=== PATIENT | female | born 1965 | race Caucasian/White ===

== ENCOUNTER 2016-07-15 08:11 | Day surgery (SDC) | payer MEDICARE, OTHER ==
[~2016-07-15] VITALS: Ht 157.5 cm; Wt 56.3 kg
[~2016-07-15 08:11] MED LIST: ARIP1TAB7 PO; COLY4000S PO; CYMB60CA PO; LURA1TAB2 PO; TRAZ300T2 PO; XANA1TAB2 PO
[2016-07-15] MEDS ORDERED: LORazepam 1 MG TAB SL SCH (10:00)
[2016-07-15] MEDS ORDERED: VANCOMYCIN 1000 MG/NS 250 ML IV SCH ×2 (10:00)
[2016-07-15] MEDS ORDERED: POVIDONE IODINE 5% (ANTISEPSIS KIT) 4 APPLICATIONS EACH NARE SCH (10:00)
[2016-07-15] MEDS ORDERED: MUPIROCIN 2% OINT 1 APPLIC/GM SYR NASAL SCH (10:00)
[2016-07-15] MEDS ORDERED: NS 1000 ML IV SCH (10:00)
[2016-07-15] MEDS ORDERED: CHLORHEXIDINE GLUCONATE 2 % 1 PACK (2 CLOTHS) TOP SCH (10:00)
[2016-07-15] MEDS ORDERED: Hold AM Insulin & AM Hypoglycemic medications in diabetic patients XX PRN (10:00)
[2016-07-15] MEDS ORDERED: NO Heparin, Lovenox, Coumadin at least 12 hours prior to procedure. XX PRN (10:00)
[2016-07-15 10:12] VITALS: BP 103/74; PULSE 72; RESP 18; TEMP 98.1; O2SAT 97
[2016-07-15] MEDS ORDERED: XANA2TAB2 PO (10:23)
[2016-07-15] MEDS ORDERED: ALBUAER3 INH (10:23)
[2016-07-15] MEDS ORDERED: BUPR150CR PO (10:23)
[2016-07-15] MEDS ORDERED: ABIL30TA2 PO (10:23)
[2016-07-15] MEDS ORDERED: VANCOMYCIN 500 MG VIAL ONE (10:46)
[2016-07-15] MEDS ORDERED: LIDOCAINE HCL 2% 50 ML VIAL ONE (10:46)
[2016-07-15] MEDS ORDERED: MIDAZOLAM HCL 2 MG/2 ML VIAL ONE (10:56)
[2016-07-15] MEDS ORDERED: SODIUM CHLORIDE 0.9% FLUSH 5 ML FLUSH IVF PRN (11:30)
[2016-07-15] MEDS ORDERED: ACETAMINOPHEN/CODEINE 300 MG/30 MG TAB PO PRN (11:30)
[2016-07-15] MEDS ORDERED: SODIUM CHLORIDE 0.9% FLUSH 5 ML FLUSH IVF SCH (21:00)
--- NOTE | 2016-07-16 17:18 | MP ---
cc: MODESTO MULLER M.D. DATE OF SURGERY 07/15/16 PROCEDURE Loop recorder removal. HISTORY Mrs. Arias is a 50-year-old female with history of syncope who has a previous recorder inserted, admitted for loop recorder removal. The risks, the nature and the benefit of the procedure are clearly stated to her. Risks include pneumothorax, infection and even . The patient understood and agreed to proceed. PROCEDURE IN DETAIL After written informed consent was obtained, the patient was brought to the EP lab where she was prepped and draped in the usual sterile fashion. Conscious sedation was initiated and maintained throughout the procedure by anesthesiologist. Once sedation was verified, the left parasternal area was anesthetized with 2% Xylocaine. Using an #11 blade scalpel, a 1 centimeter incision was made over the existing generator. This incision was then taken down deep fascial layer using Bovie cautery and blunt dissection. Once exposed, the loop was removed from the pocket. Then at that point I did proceed with wound closure. The deep fascial layer was approximated using 2-0 Vicryl suture in a continuous fashion. The subcutaneous layer was approximated using 2-0 Vicryl suture in continuous fashion. Dermabond adhesive was applied to the wound. There was no complication. The patient tolerated the procedure. Blood loss minimal. CONCLUSION Successful [employer] loop recorder removal, RECOMMENDATIONS The patient is going to be transferred to recovery room. Will be observed and discharged home later today. MD BRENDA Prieto/ /11:35 AM /5:15 PM
== END 2016-07-15 14:34 | disposition home or self-care (01) ==
LOC: HCAT 08:11 → HDIC 08:12 → HCAT 14:34
PROVIDERS: ATTEND Internal Medicine Interventional Cardiology
DX: Z45.09 Encounter for adjustment and management of other cardiac device (principal)
CPT/HCPCS: 33284; J2250; J3010; J3370

== ENCOUNTER 2016-07-18 11:31 | Emergency (ER) | payer MEDICARE, OTHER ==
[~2016-07-18] VITALS: Ht 157.5 cm; Wt 56.0 kg
[~2016-07-18 11:31] MED LIST changes: +ABIL30TA2 PO; +ALBUAER3 INH; -ARIP1TAB7 PO; +BUPR150CR PO; -COLY4000S PO; -XANA1TAB2 PO; +XANA2TAB2 PO
[2016-07-18 11:37] VITALS: BP 87/52; PULSE 91; RESP 18; TEMP 98; O2SAT 96
[2016-07-18 11:55] VITALS: BP 113/69; PULSE 80; RESP 16; TEMP 97.7; O2SAT 96
[2016-07-18] MEDS ORDERED: VANCOMYCIN INJ 850 MG in SODIUM CHLOR 0.9% 250 ML INJ 250 ML IV ONE (12:45)
[2016-07-18 13:10] LABS: AUTOMATED NEUTROPHIL # 2.6 TH/MM3 (1.8-7.7); BASOPHIL % 0.6 % (0.0-2.0); EOSINOPHIL # 0.3 TH/MM3 (0-0.4); HEMATOCRIT 38.9 % (35.0-46.0); HEMO FLAGS DIFF FINAL; LYMPH % 41.4 % (9.0-44.0); LYMPHOCYTE # 2.4 TH/MM3 (1.0-4.8); MEAN CELL VOLUME 88.7 FL (80.0-100.0); MEAN CORPUSCULAR HEMOGLOBIN 29.9 PG (27.0-34.0); MEAN CORPUSCULAR HGB CONC 33.8 % (32.0-36.0); MONO % 6.8 % (0.0-8.0); NEUT % 46.2 % (16.0-70.0); PLATELET COUNT 183 TH/MM3 (150-450); RED BLOOD COUNT 4.38 MIL/MM3 (4.00-5.30); RED CELL DISTRIBUTION WIDTH 11.6 % (11.6-17.2); WHITE BLOOD COUNT 5.8 TH/MM3 (4.0-11.0)
[2016-07-18 13:16] LABS: CHLORIDE 107 MEQ/L (98-107); SODIUM (NA) 142 MEQ/L (136-145)
[2016-07-18 13:18] LABS: POTASSIUM 4.2 MEQ/L (3.5-5.1)
[2016-07-18 13:20] LABS: ANION GAP 4 MEQ/L (5-15); BICARBONATE 31.2 MEQ/L (21.0-32.0); BLOOD UREA NITROGEN 11 MG/DL (7-18)
[2016-07-18 13:23] LABS: ALT (GPT) 13 U/L (10-53); AST (GOT) 11 U/L (15-37); GLOMERULAR FILTRATION RATE 53 ML/MIN (>89)
[2016-07-18 13:25] LABS: TOTAL BILIRUBIN ADULT 0.5 MG/DL (0.2-1.0)
[2016-07-18 13:26] LABS: ALKALINE PHOSPHATASE 42 U/L (45-117)
--- NOTE | 2016-07-18 14:10 | PD ---
HPI Chief Complaint: Skin Problem Time Seen by Provider: 12:16 Travel History International Travel<30 days: No Contact w/Intl Traveler<30days: No Traveled to known affect area: No History of Present Illness HPI Patient is a 50-year-old female who presents to emergency room for evaluation of possible infection to her chest wall. Patient reports that she had a loop recorder in her left chest placed by Dr Bravo 1 year and 10 months ago. Reports that on Friday, he removed this loop recorder. Patient reports that since removed, she has noticed increased bruising surrounding the incision site as well as redness as well as thick yellow drainage from the area. Patient concern for possible infection to the area. She did call her superintendent transportation's office, she was told to come to the emergency room for evaluation. Patient denies fevers, reports chills. Denies chest pain or shortness of breath at this time. Patient has not been on any antibiotics at this time. Patient also complaining of pain to area where she had a loop recorder. She reports that she had this loop recorder initially placed, patient was with some Lortab, reports that Dr. Bravo forgot to give her a prescription for Lortab after this loop recorder was removed. Patient with no other complaints at this time. PFSH Past Medical History Hx Anticoagulant Therapy: No Arthritis: Yes Asthma: Yes Bipolar Disorder: Yes Anxiety: Yes Depression: Yes Cancer: No Cardiovascular Problems: Yes (LOOP RECORDER FOR ARRYTHMIA) Chemotherapy: No Chest Pain: No Cerebrovascular Accident: No Diabetes: No Diminished Hearing: No Endocrine: No Gastrointestinal Disorders: No GERD: Yes Glaucoma: No Genitourinary: No Headaches: Yes (Migraines) Hepatitis: No Hiatal Hernia: No Herniated Disk: Yes ("BULGING DISCS FROM OLD WORK INJURY IN 1988") Hypertension: No Immune Disorder: No Implanted Vascular Access Dvce: Yes Musculoskeletal: Yes Neurologic: Yes Psychiatric: Yes (Depression) Reproductive: No Respiratory: Yes (COPD) Integumentary: No Immunizations Current: Yes Migraines: Yes Pneumonia: Yes Radiation Therapy: No Seizures: No Thyroid Disease: No Influenza Vaccination: No ?: Not Menopausal: Yes : 1 : 1 Ovarian Cysts: Yes Dilation and Curettage (D&C): Yes (X 3) Past Surgical History Abdominal Surgery: No Body Medical Devices: "WIRES STILL IN FROM SPINAL CORD STIMULATOR", MICROCHIP BEEF KILLER Cardiac Surgery: Yes (MICROCHIP MONITOR :REMOVED 07/15/16) Ear Surgery: No Endocrine Surgery: No Eye Surgery: No Genitourinary Surgery: No Gynecologic Surgery: Yes (OVARIAN CYST) Hysterectomy: No Neurologic Surgery: No Oral Surgery: No Thoracic Surgery: No Tonsillectomy: Yes Other Surgery: Yes (SINUS, back multiple and right knee) Social History Alcohol Use: No Tobacco Use: Yes (2-3 CIGS/DAY) Substance Use: No (DENIES) Allergies-Medications (Allergen,Severity, Reaction): Coded Allergies: Amoxicillin (Verified Allergy, Severe, HIVES, 07/18/16) Phenergan (Verified Allergy, Severe, HIVES/FACIAL SWELLING, 07/18/16) Toradol (Verified Allergy, Severe, HIVES/FACIAL SWELLING, 07/18/16) Benadryl (Verified Adverse Reaction, Severe, FACIAL SWELLING/HIVES, 07/18/16 ) Darvocet-N 100 (Verified Adverse Reaction, Severe, HIVES/FACIAL SWELLING, 07/18/16) Medrol (Verified Adverse Reaction, Severe, Swelling, 07/18/16) HIVES Morphine (Verified Adverse Reaction, Severe, HEADACHE, 07/18/16) Reported Meds & Prescriptions Reported Meds & Active Scripts Active Doxycycline Hyclate 100 Mg Cap 100 Mg PO BID 10 Days Reported Xanax (Alprazolam) 2 Mg Tab 2 Mg PO DAILY PRN Wellbutrin SR 12 HR (Bupropion HCl) 150 Mg Tab 150 Mg PO DAILY Abilify (Aripiprazole) 30 Mg Tab 30 Mg PO DAILY Cymbalta DR (Duloxetine HCl) 60 Mg Capdr 60 Mg PO DAILY Latuda (Lurasidone) 60 Mg Tab 60 Mg PO DAILY Trazodone (Trazodone HCl) 300 Mg Tab 300 Mg PO HS Review of Systems General / Constitutional: Positive: Chills, No: Fever Eyes: No: Visual changes HENT: No: Headaches Cardiovascular: No: Chest Pain or Discomfort Respiratory: No: Shortness of Breath Gastrointestinal: No: Abdominal Pain Genitourinary: No: Dysuria Musculoskeletal: No: Pain Skin: Positive Other (chest wall drainage), No Rash Neurologic: No: Weakness Psychiatric: No: Depression Endocrine: No: Polydipsia Hematologic/Lymphatic: No: Easy Bruising Physical Exam Narrative GENERAL: nad, nontoxic SKIN: Warm and dry. HEAD: Atraumatic. Normocephalic. EYES: No injection or drainage. ENT: No nasal bleeding or discharge. Mucous membranes pink and moist. NECK: Trachea midline. No JVD. CARDIOVASCULAR: Regular rate and rhythm. No murmur appreciated. patient with erythema surrounding left chest wall incision site, there is thick yellow pus draining from area RESPIRATORY: No accessory muscle use. Clear to auscultation. Breath sounds equal bilaterally. GASTROINTESTINAL: Abdomen soft, non-tender, nondistended. Hepatic and splenic margins not palpable. MUSCULOSKELETAL: No obvious deformities. No clubbing. No cyanosis. No edema. NEUROLOGICAL: Awake and alert. No obvious cranial nerve deficits. Motor grossly within normal limits. Normal speech. PSYCHIATRIC: Appropriate mood and affect; insight and judgment normal. Data Data Last Documented VS Vital Signs Date Time Temp Pulse Resp B/P Pulse Ox O2 Delivery O2 Flow Rate FiO2 07/18/16 14:11 75 16 90/57 96 Room Air 07/18/16 11:55 97.7 Orders Complete Blood Count With Diff (07/18/16 12:31) Comprehensive Metabolic Panel (07/18/16 12:31) Wound Culture And Gram Stain (07/18/16 12:31) Iv Access Insert/Monitor (07/18/16 12:31) Vancomycin Inj (Vancomycin Inj) (07/18/16 12:45) Ct Thorax/ Chest W Iv Contrast (07/18/16 ) Iohexol 350 Inj (Omnipaque 350 Inj) (07/18/16 14:25) Labs Laboratory Tests Test 07/18/16 13:05 White Blood Count 5.8 TH/MM3 Red Blood Count 4.38 MIL/MM3 Hemoglobin 13.1 GM/DL Hematocrit 38.9 % Mean Corpuscular Volume 88.7 FL Mean Corpuscular Hemoglobin 29.9 PG Mean Corpuscular Hemoglobin 33.8 % Concent Red Cell Distribution Width 11.6 % Platelet Count 183 TH/MM3 Mean Platelet Volume 7.0 FL Neutrophils (%) (Auto) 46.2 % Lymphocytes (%) (Auto) 41.4 % Monocytes (%) (Auto) 6.8 % Eosinophils (%) (Auto) 5.0 % Basophils (%) (Auto) 0.6 % Neutrophils # (Auto) 2.6 TH/MM3 Lymphocytes # (Auto) 2.4 TH/MM3 Monocytes # (Auto) 0.4 TH/MM3 Eosinophils # (Auto) 0.3 TH/MM3 Basophils # (Auto) 0.0 TH/MM3 CBC Comment DIFF FINAL Differential Comment Sodium Level 142 MEQ/L Potassium Level 4.2 MEQ/L Chloride Level 107 MEQ/L Carbon Dioxide Level 31.2 MEQ/L Anion Gap 4 MEQ/L Blood Urea Nitrogen 11 MG/DL Creatinine 1.10 MG/DL Estimat Glomerular Filtration 53 ML/MIN Rate Random Glucose 88 MG/DL Calcium Level 8.2 MG/DL Total Bilirubin 0.5 MG/DL Aspartate Amino Transf 11 U/L (AST/SGOT) Alanine Aminotransferase 13 U/L (ALT/SGPT) Alkaline Phosphatase 42 U/L Total Protein 6.3 GM/DL Albumin 3.2 GM/DL MDM Medical Decision Making Medical Screen Exam Complete: Yes Emergency Medical Condition: Yes Interpretation(s) Vital Signs Date Time Temp Pulse Resp B/P Pulse Ox O2 Delivery O2 Flow Rate FiO2 07/18/16 11:55 97.7 80 16 113/69 96 Room Air 07/18/16 11:37 98.0 91 18 87/52 96 CBC & BMP Diagram 07/18/16 13:05 Differential Diagnosis wound infection, chest wall abscess with cellulitis Narrative Course Patient is a 50 year old female who had a loop recorder removed on Friday by Dr. Bravo. Reports that she noticed increased redness and erythema surrounding area. Reports that she has noticed purulent drainage from incision site today. Patient with no fevers, c/o of chills. Patient reports that tetanus is up to date. VSS. Patient does have purulent yellow discharge from left-sided chest wall. Cultures will be sent for this discharge. Will give dose of vancomycin. CT of chest ordered to evaluate for possible abscess. CBC & BMP Diagram 07/18/16 13:[address] 07/18/16 0000 Signed Impressions: Service Date/Time: July 14:13 - CONCLUSION: 1. Focal skin thickening and mild inflammatory change in the subcutaneous fat along the medial left chest wall at site of removal of the loop recorder. 2. Benign cystic lesion in the posterior spleen. Raj Brady MD Patient with infection to incision site, will start her on antibiotics and have her follow-up with a primary care doctor. She will return to the emergency reviewed 48 hours for reevaluation. She will return to ER as symptoms progress or worsen. Signs and symptoms of when to return to emergency room reviewed in detail with patient Diagnosis Primary Impression: Cellulitis Qualified Code: L03.313 - Cellulitis of chest wall Additional Impressions: chest wall infection Incisional infection Qualified Code: T81.4XXA - Incisional infection, initial encounter Patient Instructions: General Instructions Additional Instructions: Please provide patient with a copy of her lab work and studies at discharge Please follow-up with your primary care doctor in 48 hours Return to emergency if your symptoms progress or worsen or if you develop fevers or chills Please take all antibiotics as prescribed Please follow up with your superintendent transportation as soon as possible Scripts Hydrocodone-Acetaminophen (Lortab)5-325 Mg Tab1 Tab PO Q6H PRN (PAIN) #6 TAB Ref 0 Prov:Lisa Collado DO 07/18/16 Doxycycline Hyclate 100 Mg [id number] Mg PO BID 10 Days Ref 0 Prov:Lisa Collado DO 07/18/16 Disposition: 01 DISCHARGE HOME Condition: Stable Lisa Collado DO Jul 18, 2016 14:10
[2016-07-18 14:11] VITALS: BP 90/57; PULSE 75; RESP 16; O2SAT 96
[2016-07-18] MEDS ORDERED: IOHEXOL 350 MG/ML 10 ML VIAL (for RAD DIAG) IV ONE (14:25)
--- NOTE | 2016-07-18 14:35 | RADHPO ---
EXAM DATE/TIME: 07/18/2016 14:13 [facility] COMPARISON: CT PULMONARY ANGIOGRAM, December 12, 2013, 11:34. CHEST SINGLE AP, August 18, 2015, 7:31. INDICATIONS : Loop recorder removed from left chest wall on Friday and has redness, itching and pain in that reg ion. Evaluate for abscess. IV CONTRAST: 50 cc Omnipaque 350 (iohexol) IV RADIATION DOSE: 6.77 CTDIvol (mGy) MEDICAL HISTORY : Chronic obstructive pulmonary disease. Gastroesophageal reflux disease. Asthma. SURGICAL HISTORY : Spinal cord stimulator. ENCOUNTER: Initial ACUITY: 4 - 6 days PAIN SCALE: 8/10 LOCATION: Left chest TECHNIQUE: Volumetric scanning of the chest was performed. Using automated exposure control and adjustment of t he mA and/or kV according to patient size, radiation dose was kept as low as reasonably achievable to obtain optimal diagnostic quality images. FINDINGS: LUNGS: There is no consolidation or pneumothorax. No concerning pulmonary nodule is visualized. PLEURA: There is no pleural thickening or pleural effusion. MEDIASTINUM: The heart and great vessels demonstrate no acute abnormality. There is no mediastinal or hilar lymph adenopathy. A minimal amount of pericardial fluid is present.AXILLAE: Within normal limits. No lymphadenopathy. SKELETAL: Within normal limits for patient age. MISCELLANEOUS: The visualized upper abdominal organs demonstrate no acute abnormality. There is focal skin thickenin g and mild inflammatory change in the subcutaneous fat along the medial left chest wall at the site o f removal of the loop recorder. There is no drainable fluid collection. A cystic lesion is present in the posterior spleen. This appears stable compared to the remote 2003 study. CONCLUSION: 1. Focal skin thickening and mild inflammatory change in the subcutaneous fat along the medial left c hest wall at site of removal of the loop recorder. 2. Benign cystic lesion in the posterior spleen. Raj Brady MD on July 18, 2016 at 14:29 Board Certified Radiologist. This report was verified electronically.
[2016-07-18] MEDS ORDERED: DOXY100C PO (15:08)
[2016-07-18] MEDS ORDERED: HYDR-3533 PO (15:14)
[2016-07-18 15:17] VITALS: BP 110/62; PULSE 75; RESP 18; O2SAT 96
== END 2016-07-18 15:33 | disposition home or self-care (01) ==
LOC: PHEFT 11:31
DX: L03.313 Cellulitis of chest wall (principal); T81.4XXA Infection following a procedure, initial encounter; M19.90 Unspecified osteoarthritis, unspecified site; J45.909 Unspecified asthma, uncomplicated; F41.8 Other specified anxiety disorders; Z72.0 Tobacco use
CPT/HCPCS: 71260; 80053; 85025; 96365; 99284; J3370; J7050; Q9967

== ENCOUNTER 2016-07-27 09:28 | Emergency (ER) | payer MEDICARE, OTHER ==
[~2016-07-27] VITALS: Ht 157.5 cm; Wt 57.0 kg
[~2016-07-27 09:28] MED LIST changes: -ALBUAER3 INH; +DOXY100C PO; +HYDR-3533 PO
[2016-07-27 09:35] VITALS: BP 105/68; PULSE 101; RESP 16; TEMP 97.5; O2SAT 94
[2016-07-27] MEDS ORDERED: IBUPROFEN 600 MG TAB PO ONE (09:45)
--- NOTE | 2016-07-27 09:50 | PD ---
HPI Chief Complaint: Injury Time Seen by Provider: 09:41 Travel History International Travel<30 days: No Contact w/Intl Traveler<30days: No Traveled to known affect area: No History of Present Illness HPI Patient is a 50-year-old female who presents to emergency room with complaints of left toe digit #5 pain. Patient reports that she was getting out of that today, reports that she related bed and injured her left toe digit #5. Reports that when she stepped onto her floor, her foot "rolled over" and reports that she heard a "crack" sound and had pain to her left digit #5. Patient here for xray. Reports no fall or any trauma to the head or neck. Reports that "I just told him my left little toe and hurts now". Patient did try to emergency room today, she did not take anything for pain prior to coming to emergency room. Patient does not have allergy to Motrin, she has tolerated this past. PFSH Past Medical History Hx Anticoagulant Therapy: No Arthritis: Yes Asthma: Yes Bipolar Disorder: Yes Anxiety: Yes Depression: Yes Cancer: No Cardiovascular Problems: Yes (LOOP RECORDER FOR ARRYTHMIA) Chemotherapy: No Chest Pain: No Cerebrovascular Accident: No Diabetes: No Diminished Hearing: No Endocrine: No Gastrointestinal Disorders: No GERD: Yes Glaucoma: No Genitourinary: No Headaches: Yes (Migraines) Hepatitis: No Hiatal Hernia: No Herniated Disk: Yes ("BULGING DISCS FROM OLD WORK INJURY IN 1988") Hypertension: No Immune Disorder: No Implanted Vascular Access Dvce: Yes Musculoskeletal: Yes Neurologic: Yes Psychiatric: Yes (Depression) Reproductive: No Respiratory: Yes (COPD) Integumentary: No Immunizations Current: Yes Migraines: Yes Pneumonia: Yes Radiation Therapy: No Seizures: No Thyroid Disease: No ?: Not Menopausal: Yes : 1 : 1 Ovarian Cysts: Yes Dilation and Curettage (D&C): Yes (X 3) Past Surgical History Abdominal Surgery: No Body Medical Devices: "WIRES STILL IN FROM SPINAL CORD STIMULATOR", MICROCHIP ALLOY WEIGHER Cardiac Surgery: Yes (MICROCHIP MONITOR :REMOVED 07/15/16) Ear Surgery: No Endocrine Surgery: No Eye Surgery: No Genitourinary Surgery: No Gynecologic Surgery: Yes (OVARIAN CYST) Hysterectomy: No Neurologic Surgery: No Oral Surgery: No Thoracic Surgery: No Tonsillectomy: Yes Other Surgery: Yes (SINUS, back multiple and right knee) Social History Alcohol Use: No Tobacco Use: Yes (2-3 CIGS/DAY) Substance Use: No (DENIES) Allergies-Medications (Allergen,Severity, Reaction): Coded Allergies: Amoxicillin (Verified Allergy, Severe, HIVES, 07/27/16) Phenergan (Verified Allergy, Severe, HIVES/FACIAL SWELLING, 07/27/16) Toradol (Verified Allergy, Severe, HIVES/FACIAL SWELLING, 07/27/16) Benadryl (Verified Adverse Reaction, Severe, FACIAL SWELLING/HIVES, ) Darvocet-N 100 (Verified Adverse Reaction, Severe, HIVES/FACIAL SWELLING, 07/27/16) Medrol (Verified Adverse Reaction, Severe, Swelling, 07/27/16) HIVES Morphine (Verified Adverse Reaction, Severe, HEADACHE, 07/27/16) Reported Meds & Prescriptions Reported Meds & Active Scripts Active Ibuprofen 600 Mg Tab 600 Mg PO Q6H PRN Reported Xanax (Alprazolam) 2 Mg Tab 1 Mg PO BID PRN Wellbutrin SR 12 HR (Bupropion HCl) 150 Mg Tab 150 Mg PO DAILY Abilify (Aripiprazole) 30 Mg Tab 30 Mg PO DAILY Cymbalta DR (Duloxetine HCl) 60 Mg Capdr 60 Mg PO DAILY Latuda (Lurasidone) 60 Mg Tab 60 Mg PO DAILY Trazodone (Trazodone HCl) 300 Mg Tab 300 Mg PO HS Review of Systems General / Constitutional: No: Fever Eyes: No: Visual changes HENT: No: Headaches Cardiovascular: No: Chest Pain or Discomfort Respiratory: No: Shortness of Breath Gastrointestinal: No: Abdominal Pain Genitourinary: No: Dysuria Musculoskeletal: Positive: Limited ROM (left digit #5), No: Pain Skin: No Rash Neurologic: No: Weakness Psychiatric: No: Depression Endocrine: No: Polydipsia Hematologic/Lymphatic: No: Easy Bruising Physical Exam Narrative GENERAL: Well-nourished, well-developed patient. SKIN: Warm and dry. HEAD: Normocephalic. EYES: No scleral icterus. No injection or drainage. NECK: Supple, trachea midline. No JVD or lymphadenopathy. CARDIOVASCULAR: Regular rate and rhythm without murmurs, gallops, or rubs. RESPIRATORY: Breath sounds equal bilaterally. No accessory muscle use. GASTROINTESTINAL: Abdomen soft, non-tender, nondistended. MUSCULOSKELETAL: No cyanosis, or edema. Patient with no obvious fractures, no obvious open fracture. Left foot: Patient with pain with range of motion to left digit #5. Patient with normal range of motion to digits #1-4. Pulses intact, neurovascularly intact. Patient with no pain with range of motion to left ankle. Right foot: Normal exam BACK: Nontender without obvious deformity. No CVA tenderness. Data Data Last Documented VS Vital Signs Date Time Temp Pulse Resp B/P Pulse Ox O2 Delivery O2 Flow Rate FiO2 07/27/16 09:35 97.5 101 16 105/68 94 Orders Foot, Complete ([id number]) (07/27/16 ) Ibuprofen (Motrin) (07/27/16 09:45) MDM Medical Decision Making Medical Screen Exam Complete: Yes Emergency Medical Condition: Yes Interpretation(s) Vital Signs Date Time Temp Pulse Resp B/P Pulse Ox O2 Delivery O2 Flow Rate FiO2 07/27/16 09:35 97.5 101 16 105/68 94 Differential Diagnosis Toe fracture, toe sprain Vital Signs Date Time Temp Pulse Resp B/P Pulse Ox O2 Delivery O2 Flow Rate FiO2 07/27/16 09:35 97.5 101 16 105/68 94 Narrative Course Patient is a 50-year-old female who presents to emergency room with complaints of pain to her left foot digit #5, patient reports that she got out of bed today , she inverted her foot by accident and reports that she hurt her left digit # 5. Patient reports that she did hear a crack to her little toe. Patient presents to emergency room for evaluation of possible fracture. Patient does not have allergy to Motrin at this was confirmed with patient. X- ray ordered to eval for possible fracture Last Impressions Foot X-Ray 07/27/16 0000 Signed Impressions: Service Date/Time: Wednesday, July 27, 2016 10:00 - CONCLUSION: Intact left foot. James Yun MD Patient with no signs of fracture. X-ray of foot radiology impression was given to patient. Encouraged patient for rest ice and elevation, will have patient return to the emergency room as needed. Diagnosis Primary Impression: Sprain of toe, fifth, left Qualified Code: S93.505A - Sprain of toe, fifth, left, initial encounter Patient Instructions: General Instructions Departure Forms: Tests/Procedures, Work Release Enter return to work date: Jul 29, 2016 Additional Instructions: Please follow-up with your primary care doctor Place ice to your toe Take Tylenol or Motrin for pain Return to the emergency room as needed Follow-up with orthopedic surgery or podiatry if symptoms progress or worse Med/Other Pt SpecificInfo: Prescription(s) given Scripts Ibuprofen 600 Mg [id number] Mg PO Q6H PRN (Pain/Inflammation) #40 TAB Ref 0 Prov:Lisa Collado DO 07/27/16 Disposition: 01 DISCHARGE HOME Condition: Stable Lisa Collado DO Jul 27, 2016 09:50 Lisa Collado DO Jul 27, 2016 09:50
--- NOTE | 2016-07-27 10:25 | RADHPO ---
EXAM DATE/TIME: 07/27/2016 10:00 [facility] COMPARISON: No previous studies available for comparison. INDICATIONS : twisted left foot this am, worse pain base of 5th,4th toes MEDICAL HISTORY : None. SURGICAL HISTORY : None. ENCOUNTER: Initial ACUITY: 1 day PAIN SCORE: 7/10 LOCATION: Left foot FINDINGS: Three view examination of the left foot demonstrates no soft tissue swelling, dislocation, or fractur e. The tarsal bones appear intact. The interphalangeal and metatarsophalangeal joints are intact. The calcaneus is intact. Bony mineralization is normal. CONCLUSION: Intact left foot. James Yun MD on July 27, 2016 at 10:23 Board Certified Radiologist. This report was verified electronically.
[2016-07-27] MEDS ORDERED: IBUP-232 PO (10:35)
== END 2016-07-27 11:17 | disposition home or self-care (01) ==
LOC: PHED 09:28
DX: S93.505A Unspecified sprain of left lesser toe(s), initial encounter (principal); Z72.0 Tobacco use; J44.9 Chronic obstructive pulmonary disease, unspecified; X50.1XXA Overexertion from prolonged static or awkward postures, initial encounter; Y93.9 Activity, unspecified; Y92.9 Unspecified place or not applicable; Y99.9 Unspecified external cause status
CPT/HCPCS: 73630; 99283

== ENCOUNTER 2016-10-19 09:47 | Emergency (ER) | payer MEDICARE, OTHER ==
[~2016-10-19] VITALS: Ht 157.5 cm; Wt 56.0 kg
[~2016-10-19 09:47] MED LIST changes: -DOXY100C PO; -HYDR-3533 PO; +IBUP-232 PO
[2016-10-19 10:05] VITALS: BP 105/74; PULSE 88; RESP 16; TEMP 97.5; O2SAT 56; O2SAT 98
--- NOTE | 2016-10-19 11:10 | PD ---
HPI Chief Complaint: Musculoskeletal Complaint Time Seen by Provider: 11:09 Travel History International Travel<30 days: No Contact w/Intl Traveler<30days: No Traveled to known affect area: No History of Present Illness HPI 51-year-old female presents the emergency department with one week history of worsening right knee pain. Patient states she has had surgery on his knee years ago in [place] with cartilage removal. She states she bumped her knee on the steering column a car approximately one week ago and is progressively worse with pain generally in the anterior aspect of the knee. She states is worse with ambulation and worse at night. She has been taking ibuprofen and Aleve without improvement. She describes the pain as 8/10. Worse with ambulation. Patient has no local orthopedist or primary care physician. She is allergic to amoxicillin, Benadryl, Darvocet, Medrol, morphine , Phenergan, and Toradol. PFSH Past Medical History Hx Anticoagulant Therapy: No Arthritis: Yes Asthma: Yes Bipolar Disorder: Yes Anxiety: Yes Depression: Yes Cancer: No Cardiovascular Problems: Yes (LOOP RECORDER FOR ARRYTHMIA) Chemotherapy: No Chest Pain: No Cerebrovascular Accident: No Diabetes: No Diminished Hearing: No Endocrine: No Gastrointestinal Disorders: No GERD: Yes Glaucoma: No Genitourinary: No Headaches: Yes (Migraines) Hepatitis: No Hiatal Hernia: No Herniated Disk: Yes ("BULGING DISCS FROM OLD WORK INJURY IN 1988") Hypertension: No Immune Disorder: No Implanted Vascular Access Dvce: Yes Musculoskeletal: Yes Neurologic: Yes Psychiatric: Yes (Depression) Reproductive: No Respiratory: Yes (copd) Integumentary: No Immunizations Current: Yes Migraines: Yes Pneumonia: Yes Radiation Therapy: No Seizures: No Thyroid Disease: No ?: Not Menopausal: Yes : 1 : 1 Ovarian Cysts: Yes Dilation and Curettage (D&C): Yes (X 3) Past Surgical History Abdominal Surgery: No Body Medical Devices: "WIRES STILL IN FROM SPINAL CORD STIMULATOR", MI[employer]IP [employer]ITLES Cardiac Surgery: Yes (MICROCHIP MONITOR :REMOVED 07/15/16) Ear Surgery: No Endocrine Surgery: No Eye Surgery: No Genitourinary Surgery: No Gynecologic Surgery: Yes (OVARIAN CYST) Hysterectomy: No Neurologic Surgery: No Oral Surgery: No Thoracic Surgery: No Tonsillectomy: Yes Other Surgery: Yes (SINUS, back multiple and right knee) Social History Alcohol Use: No Tobacco Use: Yes (2 CIGS/DAY) Substance Use: No (DENIES) Allergies-Medications (Allergen,Severity, Reaction): Coded Allergies: Amoxicillin (Verified Allergy, Severe, HIVES, 10/19/16) Phenergan (Verified Allergy, Severe, HIVES/FACIAL SWELLING, 10/19/16) Toradol (Verified Allergy, Severe, HIVES/FACIAL SWELLING, 10/19/16) Benadryl (Verified Adverse Reaction, Severe, FACIAL SWELLING/HIVES, ) Darvocet-N 100 (Verified Adverse Reaction, Severe, HIVES/FACIAL SWELLING, 10/19/16) Medrol (Verified Adverse Reaction, Severe, Swelling, 10/19/16) HIVES Morphine (Verified Adverse Reaction, Severe, HEADACHE, 10/19/16) Reported Meds & Prescriptions Reported Meds & Active Scripts Active Lortab (Hydrocodone-Acetaminophen) 5-325 Mg Tab 1-2 Tab PO Q6H PRN Prednisone 20 Mg Tab 20 Mg PO BID Ibuprofen 600 Mg Tab 600 Mg PO Q6H PRN Reported Xanax (Alprazolam) 2 Mg Tab 1 Mg PO BID PRN Wellbutrin SR 12 HR (Bupropion HCl) 150 Mg Tab 150 Mg PO DAILY Abilify (Aripiprazole) 30 Mg Tab 30 Mg PO DAILY Cymbalta DR (Duloxetine HCl) 60 Mg Capdr 60 Mg PO DAILY Latuda (Lurasidone) 60 Mg Tab 60 Mg PO DAILY Trazodone (Trazodone HCl) 300 Mg Tab 300 Mg PO HS Review of Systems Except as stated in HPI: all other systems reviewed are Neg General / Constitutional: No: Fever Eyes: No: Visual changes HENT: No: Headaches Cardiovascular: No: Chest Pain or Discomfort Respiratory: No: Shortness of Breath Gastrointestinal: No: Abdominal Pain Genitourinary: No: Dysuria Musculoskeletal: Positive: Arthralgias, Limited ROM, Pain Skin: No Rash Neurologic: No: Weakness Psychiatric: No: Depression Endocrine: No: Polydipsia Hematologic/Lymphatic: No: Easy Bruising Physical Exam Narrative GENERAL: Patient appears in no acute distress. SKIN: Warm and dry. Normal color. Normal turgor. No signs of trauma. Patient has a large well-healed scar to the lateral aspect of the right knee. HEAD: Atraumatic. Normocephalic. EYES: Pupils equal and round. No scleral icterus. No injection or drainage. ENT: No nasal bleeding or discharge. Mucous membranes pink and moist. Pharynx is clear. Airway is patent. NECK: Trachea midline. Supple and nontender. CARDIOVASCULAR: Regular rate and rhythm. RESPIRATORY: No accessory muscle use. Clear to auscultation. Breath sounds equal bilaterally. MUSCULOSKELETAL: Extremities without clubbing, cyanosis, or edema. No obvious deformities. Patient has mild effusion along the patella bilaterally. Range of motion shows no significant laxity, however patient does have significant discomfort with flexion. Exam is limited secondary to patient's pain. NEUROLOGICAL: Awake and alert. No obvious cranial nerve deficits. Motor grossly within normal limits. Five out of 5 muscle strength in the arms and legs. Normal speech. PSYCHIATRIC: Appropriate mood and affect; insight and judgment normal. Data Data Last Documented VS Vital Signs Date Time Temp Pulse Resp B/P Pulse Ox O2 Delivery O2 Flow Rate FiO2 10/19/16 10:05 97.5 88 16 105/74 98 Orders Knee, Complete (4vws) (10/19/16 11:25) Ice/Cold Pack (10/19/16 11:25) Prednisone (Deltasone) (10/19/16 11:30) Tramadol (Ultram) (10/19/16 11:30) Splint Or Brace Apply/Monitor (10/19/16 12:17) Crutches (10/19/16 12:17) MDM Medical Decision Making Medical Screen Exam Complete: Yes Emergency Medical Condition: Yes Differential Diagnosis Arthritis. Right knee pain. Right knee contusion. Narrative Course Patient is medically stable at time of exam. X-rays of the right are ordered. Patient is given 60 mg prednisone by mouth as well as 50 mg tramadol by mouth. X-rays show arthritic changes without acute findings. Patient is placed in a knee immobilizer and crutches. She'll be discharged home on prednisone 20 mg twice a day 5 days. Patient is also given Lortab 5/325 one every 6 hours when necessary pain. #20. Patient is referred to the orthopedic on-call who is Dr. Couch. Patient should follow local primary care physician as well. Diagnosis Primary Impression: Arthralgia of right knee Referrals: Jose Almonte MD call for appointment Patient Instructions: Crutch Instructions (ED), General Instructions, Knee Immobilizer (ED) Additional Instructions: Patient is given 60 mg prednisone by mouth as well as 50 mg tramadol by mouth. X-rays show arthritic changes without acute findings. Patient is placed in a knee immobilizer and crutches. She'll be discharged home on prednisone 20 mg twice a day 5 days. Patient is also given tramadol 50 mg one every 6 hours when necessary pain. Patient is referred to the orthopedic on-call who is Dr. Couch. Patient should follow local primary care physician as well. Med/Other Pt SpecificInfo: Prescription(s) given Scripts Hydrocodone-Acetaminophen (Lortab)5-325 Mg Tab1-2 Tab PO Q6H PRN (PAIN) #20 TAB Prov:Daren Barrios MD 10/19/16 Prednisone 20 Mg Tab20 Mg PO BID #10 TAB Prov:Daren Barrios MD 10/19/16 Disposition: 01 DISCHARGE HOME Condition: Stable Jonathan Sexton October 19, 2016 11:10
[2016-10-19] MEDS ORDERED: predniSONE 20 MG TAB PO ONE (11:30)
[2016-10-19] MEDS ORDERED: traMADol HCL 50 MG TAB PO ONE (11:30)
--- NOTE | 2016-10-19 12:12 | RADHPO ---
EXAM DATE/TIME: 10/19/2016 11:46 [facility] COMPARISON: No previous studies available for comparison. INDICATIONS : Right knee pain, hit knee on hard surface MEDICAL HISTORY : None. SURGICAL HISTORY : knee surgery ENCOUNTER: Initial ACUITY: 1 week PAIN SCORE: 8/10 LOCATION: Right knee FINDINGS: Four view examination of the right knee demonstrates no evidence of fracture or dislocation. Mild deg enerative changes. Chondrocalcinosis. Soft tissue swelling. CONCLUSION: Soft tissue swelling without fracture. Mild degenerative changes and chondrocalcinosis. Dennys Nixon MD on October 19, 2016 at 12:09 Board Certified Radiologist. This report was verified electronically.
[2016-10-19] MEDS ORDERED: HYDR-3533 PO (12:19)
[2016-10-19] MEDS ORDERED: PRED20 PO (12:19)
== END 2016-10-19 12:40 | disposition home or self-care (01) ==
LOC: PHEFT 09:47
DX: M25.561 Pain in right knee (principal); J44.9 Chronic obstructive pulmonary disease, unspecified; M19.90 Unspecified osteoarthritis, unspecified site; F41.8 Other specified anxiety disorders; Z72.0 Tobacco use
CPT/HCPCS: 73564; 99283; E0113; J7512; L1830

== ENCOUNTER 2016-12-13 09:29 | Inpatient (IN) | payer MEDICARE, OTHER ==
[~2016-12-13] VITALS: Ht 157.5 cm; Wt 51.2 kg
[2016-12-13] VITALS (7 sets, daily range): BP systolic 98–115; BP diastolic 60–75; PULSE 67–83; RESP 16–18; TEMP 97.8–98; O2SAT 97–99
[~2016-12-13 09:29] MED LIST changes: +HYDR-3533 PO; +PRED20 PO
[2016-12-13] MEDS: SODIUM CHLORIDE 0.9% FLUSH 10 ML FLUSH IVF PRN ×2 (10:04→10:14)
[2016-12-13] MEDS ORDERED: LORazepam 2 MG/ML VIAL IV ONE (10:15)
--- NOTE | 2016-12-13 10:17 | PD ---
HPI Chief Complaint: Chest Pain Time Seen by Provider: 09:54 Travel History International Travel<30 days: No Contact w/Intl Traveler<30days: No Traveled to known affect area: No History of Present Illness HPI This is a 51-year-old female with a history of depression, substance abuse, who presents here with complaints of chest pain. When I went in to examine and talk with the patient, she became very tearful and stated that she was depressed. She states that she drank alcohol yesterday and smoked crack cocaine as well. She reports the chest pain as left sided with arm pain. She states that she is extremely depressed and needs to speak with a psychiatrist. When asked if she's been evaluated and seen before, the patient reports that she has. She denies any suicidal or homicidal ideation. She states been off of her medications for 4 days. When asked about her chest pain and depression, she states she is mainly here for her depression. She reports she's been having problems with her boyfriend. There are no other complaints at the time of my examination. PFSH Past Medical History Hx Anticoagulant Therapy: No Arthritis: Yes Asthma: Yes Bipolar Disorder: Yes Anxiety: Yes Depression: Yes Cancer: No Cardiovascular Problems: Yes Chemotherapy: No Chest Pain: No Cerebrovascular Accident: No Diabetes: No Diminished Hearing: No Endocrine: No Gastrointestinal Disorders: No GERD: Yes Glaucoma: No Genitourinary: No Headaches: Yes (Migraines) Hepatitis: No Hiatal Hernia: No Herniated Disk: Yes ("BULGING DISCS FROM OLD WORK INJURY IN 1988") Hypertension: No Immune Disorder: No Implanted Vascular Access Dvce: Yes Musculoskeletal: Yes Neurologic: Yes Psychiatric: Yes (Depression) Reproductive: No Respiratory: Yes (copd) Integumentary: No Immunizations Current: Yes Migraines: Yes Pneumonia: Yes Radiation Therapy: No Seizures: No Thyroid Disease: No Tetanus Vaccination: < 5 Years Influenza Vaccination: No ?: Not Menopausal: Yes : 1 : 1 Ovarian Cysts: Yes Dilation and Curettage (D&C): Yes (X 3) Past Surgical History Abdominal Surgery: No Body Medical Devices: "WIRES STILL IN FROM SPINAL CORD STIMULATOR", MI[employer]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 Cardiac Surgery: Yes (MICROCHIP MONITOR :REMOVED 07/15/16) Ear Surgery: No Endocrine Surgery: No Eye Surgery: No Genitourinary Surgery: No Gynecologic Surgery: Yes (OVARIAN CYST) Hysterectomy: No Neurologic Surgery: No Oral Surgery: No Thoracic Surgery: No Tonsillectomy: Yes Other Surgery: Yes (SINUS, back multiple and right knee) Social History Alcohol Use: Yes (RARE) Tobacco Use: Yes (2 CIGS/DAY) Substance Use: Yes (CRACK) Allergies-Medications (Allergen,Severity, Reaction): Coded Allergies: Amoxicillin (Verified Allergy, Severe, HIVES, 12/13/16) Phenergan (Verified Allergy, Severe, HIVES/FACIAL SWELLING, 12/13/16) Toradol (Verified Allergy, Severe, HIVES/FACIAL SWELLING, 12/13/16) Benadryl (Verified Adverse Reaction, Severe, FACIAL SWELLING/HIVES, 12/13/16 ) Darvocet-N 100 (Verified Adverse Reaction, Severe, HIVES/FACIAL SWELLING, 12/13/16) Medrol (Verified Adverse Reaction, Severe, Swelling, 12/13/16) HIVES Morphine (Verified Adverse Reaction, Severe, HEADACHE, 12/13/16) Reported Meds & Prescriptions Reported Meds & Active Scripts Active Reported Xanax (Alprazolam) 2 Mg Tab 1 Mg PO BID PRN Wellbutrin SR 12 HR (Bupropion HCl) 150 Mg Tab 150 Mg PO DAILY Abilify (Aripiprazole) 30 Mg Tab 30 Mg PO DAILY Cymbalta DR (Duloxetine HCl) 60 Mg Capdr 60 Mg PO DAILY Latuda (Lurasidone) 60 Mg Tab 60 Mg PO DAILY Trazodone (Trazodone HCl) 300 Mg Tab 300 Mg PO HS Review of Systems Except as stated in HPI: all other systems reviewed are Neg General / Constitutional: No: Fever, Chills Eyes: No: Blurred Vision, Photophobia HENT: No: Headaches, Neck Pain Cardiovascular: Positive: Chest Pain or Discomfort (tightness and left arm pain ), No: Palpitations, Irregular Rhythm Respiratory: No: Cough, Shortness of Breath Gastrointestinal: No: Nausea, Vomiting, Abdominal Pain Musculoskeletal: Positive: Pain (left arm pain earlier, none now), No: Myalgias, Weakness Neurologic: No: Weakness, Dizziness Psychiatric: Positive: Depression, Disorder of Thought, Substance Abuse Physical Exam Narrative GENERAL: Well developed well-nourished female who is very tearful and emotional when I entered the room. SKIN: Focused skin assessment warm/dry. HEAD: Atraumatic. Normocephalic. EYES: No scleral icterus. No injection or drainage. ENT: No nasal bleeding or discharge. Mucous membranes pink and moist. NECK: Trachea midline. No JVD. Supple. CARDIOVASCULAR: Regular rate and rhythm. No murmur appreciated. RESPIRATORY: No accessory muscle use. Clear to auscultation. Breath sounds equal bilaterally. GASTROINTESTINAL: Abdomen soft, non-tender, nondistended. Hepatic and splenic margins not palpable. MUSCULOSKELETAL: No obvious deformities. No clubbing. No cyanosis. No edema. NEUROLOGICAL: Awake and alert. No obvious cranial nerve deficits. Motor grossly within normal limits. Normal speech. PSYCHIATRIC: Emotionally labile with episodes of crying. Data Data Last Documented VS Vital Signs Date Time Temp Pulse Resp B/P Pulse Ox O2 Delivery O2 Flow Rate FiO2 12/13/16 13:02 97.9 72 16 110/73 99 Room Air Orders Electrocardiogram (12/13/16 ) Electrocardiogram (12/13/16 09:54) Basic Metabolic Panel (Bmp) (12/13/16 09:54) Ckmb (Isoenzyme) Profile (12/13/16 09:54) Complete Blood Count With Diff (12/13/16 09:54) Troponin I (12/13/16 09:54) Chest, Single Ap (12/13/16 09:54) Ecg Monitoring (12/13/16 09:54) Bilateral Bp Monitoring (12/13/16 09:54) Iv Access Insert/Monitor (12/13/16 09:54) Oximetry (12/13/16 09:54) Oxygen Administration (12/13/16 09:54) Sodium Chloride 0.9% Flush (Ns Flush) (12/13/16 10:00) Psych Screen (12/13/16 10:03) Lorazepam Inj (Ativan Inj) (12/13/16 10:15) Drug Screen, Random Urine (12/13/16 10:03) CKMB (12/13/16 10:00) CKMB% (12/13/16 10:00) Labs Laboratory Tests Test 12/13/16 10:00 White Blood Count 9.9 TH/MM3 Red Blood Count 4.19 MIL/MM3 Hemoglobin 13.1 GM/DL Hematocrit 37.8 % Mean Corpuscular Volume 90.0 FL Mean Corpuscular Hemoglobin 31.1 PG Mean Corpuscular Hemoglobin 34.6 % Concent Red Cell Distribution Width 12.3 % Platelet Count 245 TH/MM3 Mean Platelet Volume 7.8 FL Neutrophils (%) (Auto) 72.1 % Lymphocytes (%) (Auto) 20.8 % Monocytes (%) (Auto) 6.0 % Eosinophils (%) (Auto) 0.5 % Basophils (%) (Auto) 0.6 % Neutrophils # (Auto) 7.1 TH/MM3 Lymphocytes # (Auto) 2.1 TH/MM3 Monocytes # (Auto) 0.6 TH/MM3 Eosinophils # (Auto) 0.1 TH/MM3 Basophils # (Auto) 0.1 TH/MM3 CBC Comment DIFF FINAL Differential Comment Sodium Level 141 MEQ/L Potassium Level 3.9 MEQ/L Chloride Level 107 MEQ/L Carbon Dioxide Level 26.7 MEQ/L Anion Gap 7 MEQ/L Blood Urea Nitrogen 17 MG/DL Creatinine 0.97 MG/DL Estimat Glomerular Filtration 61 ML/MIN Rate Random Glucose 89 MG/DL Calcium Level 9.0 MG/DL Total Creatine Kinase 202 U/L Creatine Kinase MB 2.2 NG/ML Creatine Kinase MB % 1.1 % Troponin I LESS THAN 0.02 NG/ML MDM Medical Decision Making Medical Screen Exam Complete: Yes Emergency Medical Condition: Yes Differential Diagnosis Depression versus substance induced chest pain versus ACS Narrative Course 51-year-old female who presents today with complaints of chest pain and depression. Patient states she's mainly depressed. She states she has life stressors with her boyfriend. She states she used alcohol and cocaine last night. Cardiac enzymes and make EKG showed no evidence of acute findings. She' ll be medically cleared for psychiatric evaluation. Diagnosis Primary Impression: Atypical chest pain Additional Impressions: Depression Polysubstance abuse medically cleared Lucas Da Silva MD Dec 13, 2016 10:17
[2016-12-13 10:18] LABS: AUTOMATED NEUTROPHIL # 7.1 TH/MM3 (1.8-7.7); BASOPHIL # 0.1 TH/MM3 (0-0.2); BASOPHIL % 0.6 % (0.0-2.0); EOSINOPHIL # 0.1 TH/MM3 (0-0.4); EOSINOPHIL % 0.5 % (0.0-4.0); HEMATOCRIT 37.8 % (35.0-46.0); HEMO FLAGS DIFF FINAL; LYMPH % 20.8 % (9.0-44.0); LYMPHOCYTE # 2.1 TH/MM3 (1.0-4.8); MEAN CORPUSCULAR HEMOGLOBIN 31.1 PG (27.0-34.0); MEAN CORPUSCULAR HGB CONC 34.6 % (32.0-36.0); NEUT % 72.1 % (16.0-70.0); PLATELET COUNT 245 TH/MM3 (150-450); RED BLOOD COUNT 4.19 MIL/MM3 (4.00-5.30); RED CELL DISTRIBUTION WIDTH 12.3 % (11.6-17.2); WHITE BLOOD COUNT 9.9 TH/MM3 (4.0-11.0)
--- NOTE | 2016-12-13 10:22 | RADRPT ---
EXAM DATE/TIME: 12/13/2016 10:01 [facility] COMPARISON: CHEST SINGLE AP, August 18, 2015, 7:31. INDICATIONS : Chest pain. MEDICAL HISTORY : Myocardial infarction. SURGICAL HISTORY : Loop recorder ENCOUNTER: Initial ACUITY: 1 day PAIN SCORE: 2/10 LOCATION: Bilateral chest FINDINGS: Lungs are slightly hyperaerated but are otherwise clear. Cardiomediastinal contours are within normal limits. Bony thorax is intact. CONCLUSION: 1. No acute cardiopulmonary disease. Tima Beverly MD on December 13, 2016 at 10:20 Board Certified Radiologist. This report was verified electronically.
[2016-12-13 10:34] LABS: ANION GAP 7 MEQ/L (5-15); BICARBONATE 26.7 MEQ/L (21.0-32.0); BLOOD UREA NITROGEN 17 MG/DL (7-18); CHLORIDE 107 MEQ/L (98-107); GLOMERULAR FILTRATION RATE 61 ML/MIN (>89); POTASSIUM 3.9 MEQ/L (3.5-5.1); SODIUM (NA) 141 MEQ/L (136-145)
[2016-12-13 10:38] LABS: CREATINE KINASE 202 U/L (26-192)
[2016-12-13 10:50] LABS: CKMB 2.2 NG/ML (0.5-3.6)
--- NOTE | 2016-12-13 13:42 | EKG ---
Date Performed: 12/13/2016 Time Performed: 09:39:59 PTAGE: 51 years EKG: Sinus rhythm POSSIBLE LEFT ATRIAL ENLARGEMENT POSSIBLE RIGHT VENTRICULAR CONDUCTION DELAY BORDERLINE ECG Compared to prior tracing no significant change PREVIOUS TRACING : 08/18/2015 04.31 DOCTOR: Driss Chapa Interpretating Date/Time 12/13/2016 13:39:39
[2016-12-13 17:33] LABS: CREATINE KINASE 229 U/L (26-192)
[2016-12-13 17:45] LABS: CKMB 2.2 NG/ML (0.5-3.6)
[2016-12-13 20:43] LABS: AMPHETAMINE, URINE NEG (NEG); BARBITURATES, URINE NEG (NEG); COCAINE, URINE POS (NEG)
[2016-12-13] MEDS: ARIPiprazole 30 MG TAB PO SCH (20:52)
[2016-12-13] MEDS: traZODone HCL 100 MG TAB PO SCH (20:52)
[2016-12-14 02:14] VITALS: BP 99/55; PULSE 71; RESP 18; O2SAT 96
[2016-12-14 05:52] VITALS: BP 112/61; PULSE 84; RESP 16
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
[2016-12-14] MEDS: ARIPiprazole 30 MG TAB PO SCH (10:03)
[2016-12-14] MEDS ORDERED: MAGNESIUM HYDROXIDE SUSP 30 ML CUP PO PRN (10:15)
[2016-12-14 11:00] VITALS: BP 95/62; PULSE 69; RESP 16; TEMP 98.8; O2SAT 94
--- NOTE | 2016-12-14 16:33 | EKG ---
Date Performed: 12/13/2016 Time Performed: 16:44:45 PTAGE: 51 years EKG: Sinus rhythm INDETERMINATE AXIS INCOMPLETE RBBB ATYPICAL ECG PREVIOUS TRACING : 12/13/2016 09.39 Compared to prior tracing no significant change DOCTOR: Mamadou Bruner Interpretating Date/Time 12/14/2016 16:32:46
[2016-12-14 18:00] VITALS: BP 110/61; PULSE 71; RESP 17; TEMP 98.5; O2SAT 96
[2016-12-14] MEDS ORDERED: LORazepam 2 MG/ML VIAL IV PUSH PRN ×4 (20:00)
[2016-12-14] MEDS ORDERED: LORazepam 2 MG TAB PO PRN (20:00)
[2016-12-14] MEDS ORDERED: FLUMAZENIL 0.5 MG/5 ML VIAL IV PUSH PRN (20:00)
[2016-12-14] MEDS: LORazepam 1 MG TAB PO PRN (20:57)
[2016-12-14] MEDS: traZODone HCL 100 MG TAB PO SCH (21:57)
[2016-12-15] MEDS: LORazepam 1 MG TAB PO PRN ×2 (02:00→14:15)
[2016-12-15 06:44] VITALS: BP 107/57; PULSE 84; RESP 18; TEMP 96.7; O2SAT 94
[2016-12-15 09:00] LABS: ANION GAP 7 MEQ/L (5-15); BICARBONATE 26.8 MEQ/L (21.0-32.0); BLOOD UREA NITROGEN 12 MG/DL (7-18); CHLORIDE 105 MEQ/L (98-107); GLOMERULAR FILTRATION RATE 71 ML/MIN (>89); POTASSIUM 3.6 MEQ/L (3.5-5.1); SODIUM (NA) 139 MEQ/L (136-145)
[2016-12-15] MEDS ORDERED: diphenhydrAMINE HCL 50 MG CAP PO PRN (09:00)
[2016-12-15] MEDS ORDERED: ALUMINUM/MAGNESIUM/SIMETH 30 ML CUP PO PRN (09:00)
[2016-12-15] MEDS ORDERED: hydrOXYzine HCL 50 MG TAB PO PRN (09:00)
[2016-12-15] MEDS ORDERED: MAGNESIUM HYDROXIDE SUSP 30 ML CUP PO PRN (09:00)
[2016-12-15 09:02] LABS: HDL CHOLESTEROL 43.2 MG/DL (40.0-60.0); LDL CHOLESTEROL 150 MG/DL (0-99)
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
[2016-12-15] MEDS ORDERED: PILL SPLITTER OTHER PRN (09:15)
[2016-12-15] MEDS: LURASIDONE 40 MG TAB PO SCH (09:21)
[2016-12-15] MEDS: ARIPiprazole 30 MG TAB PO SCH (09:21)
[2016-12-15] MEDS: DULoxetine HCl DR 60 MG CAP PO SCH (09:22)
[2016-12-15] MEDS: buPROPion HCL 150 MG SUSTAINED RELEASE TAB PO SCH (09:22)
[2016-12-15 10:32] LABS: HEMOGLOBIN A1b 1.6 %; HEMOGLOBIN Ao 86.1 %; HEMOGLOBIN LA1C 1.9 %; HEMOGLOBIN P3 3.5 %
[2016-12-15 17:09] VITALS: BP 140/76; PULSE 82; RESP 18; TEMP 96.7; O2SAT 97
[2016-12-15] MEDS: traZODone HCL 100 MG TAB PO SCH (22:24)
[2016-12-16 03:33] VITALS: BP 136/77; PULSE 89; RESP 18; TEMP 97.9; O2SAT 95
[2016-12-16] MEDS: ARIPiprazole 30 MG TAB PO SCH (08:31)
[2016-12-16] MEDS: buPROPion HCL 150 MG SUSTAINED RELEASE TAB PO SCH (08:31)
[2016-12-16] MEDS: DULoxetine HCl DR 60 MG CAP PO SCH (08:31)
[2016-12-16] MEDS: LURASIDONE 40 MG TAB PO SCH (09:00)
--- NOTE | 2016-12-16 11:58 | HHI.PYPN ---
Subjective Remarks Patient seen and examined with nurse. Chart reviewed. It appears that the patient has received approximately 4 mg of Ativan in the 24 hours prior to my evaluation by AKASH. Case discussed with nursing staff. On my examination today , the patient says that her chief goals in being in the hospital are to find "a new place to go." She says that she is "afraid of the street." She says that she has strained her relationships with loved ones because of her ongoing substance use including use of cocaine. Mood remains a little anxious. Sleep reportedly poor although appetite is good. No SI or HI. Denies side effects from medications. I did discuss with the patient the risks of the use of Wellbutrin given her substance use issues and risk for withdrawal in light of its propensity to lower the seizure threshold. The same would also apply to the Latuda. Patient feels like current medication combination has been efficacious in the past and would like to continue, although she notes that she has had problems with adherence to medications in the past. No physical complaints besides some subjective tremors. Review of Systems Except as stated in HPI: all other systems reviewed are Neg Objective Alert: Yes [place]: Person (O x 3) Mood: Anxious Affect: Blunted Memory Intact: Comment (Intact on clinical exam) Hallucinations: Other (Denies AVH) Delusions: No Delusion Type: Other (No delusions) Suicidal: Ideation (No SI) Homicidal: Ideation (No HI) Insight/Judgment Fair Remarks No motor abnormalities noted. No hand tremor, diaphoresis, no mydriasis, no other signs of GABAergic withdrawal noted. Thought process linear. Grooming and hygiene fair. Speech within normal limits for rate, tone and volume. Labs Labs reviewed. Urine toxicology results noted. I additionally note decreased GFR and mildly elevated CK. Vitals/IOs Vital Signs Date Time Temp Pulse Resp B/P Pulse Ox O2 Delivery O2 Flow Rate FiO2 12/16/16 03:33 97.9 89 18 136/77 95 12/14/16 07:57 Room Air Assessment & Plan Problem List: (1) Other psychoactive substance dependence with psychoactive substance-induced mood disorder ICD Code: F19.24 Assessment & Plan Suspect current symptomatology largely related to drug-induced mood disorder +/ - reaction to acute psychosocial stressors +/- symptom exaggeration for long-term as patient is ?transiently without stable housing. Continue Latuda, Wellbutrin , and Cymbalta as ordered. Continue CIWA with Ativan for withdrawal. Add seizure/fall prec. Encourage fluids and recheck CK and BMP in morning. Continue to monitor on an inpatient unit. Continue other medications and care as ordered. Justification for Cont. Inpt. Risk for decompensation Discharge Planning Anticipate discharge around the middle of the week. Request HC Surrog/Guard Advoc?: No Driss Flower MD Dec 16, 2016 11:58
[2016-12-16] MEDS: LORazepam 1 MG TAB PO PRN ×2 (12:19→21:19)
[2016-12-16 17:03] VITALS: BP 125/78; PULSE 96; RESP 18; TEMP 98.7; O2SAT 96
[2016-12-16] MEDS: traZODone HCL 100 MG TAB PO SCH (21:16)
[2016-12-17] MEDS: LORazepam 1 MG TAB PO PRN (01:53)
[2016-12-17 06:06] VITALS: BP 101/62; PULSE 65; RESP 16; TEMP 97.3; O2SAT 95
[2016-12-17] MEDS: buPROPion HCL 150 MG SUSTAINED RELEASE TAB PO SCH (08:26)
[2016-12-17] MEDS: LURASIDONE 40 MG TAB PO SCH (08:26)
[2016-12-17] MEDS: DULoxetine HCl DR 60 MG CAP PO SCH (08:26)
[2016-12-17] MEDS: ARIPiprazole 30 MG TAB PO SCH (08:26)
--- NOTE | 2016-12-17 11:03 | PD.TTN ---
Present for Treatment Team Treatment Team Staff: Provider (Dr. Flower), Nurse (Adriano), Psych Therapist (Kavita), Occupational Therapist (Johnson) Patient Problems 1. Discharge planning 2. Medication compliance 3. Knowledge deficit 4. Lack of coping skills Progress Toward Goals Provider Input: Patient presents to be med seeking and complaining about inability to sleep. patient is otherwise presenting appropriately on unit. Possible discharge on Friday. Patient will be taking off CIWA and will have vitials monitored Nurse Input: Patient is presenting with vague saddness, though she does not state why. Patient is compliant with medications and is having difficulties sleep due to her withdrawls. Psych Therapist Input: Patient states that she has been seeing bugs and is having some issues with her balance. Patient issues complaints about not wanting to return home but denies having SI/HI feelings. Occupational Therapist Input: Patient atteds group occassionally and participates. Kavita Houser [facility] Dec 17, 2016 11:03
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
[2016-12-17 12:33] VITALS: BP 98/53; PULSE 89
[2016-12-17] MEDS: ACETAMINOPHEN 325 MG TAB PO PRN (14:52)
[2016-12-17 15:29] VITALS: BP 108/59; PULSE 84; RESP 18; TEMP 98.5; O2SAT 98
[2016-12-17 19:30] VITALS: BP 131/78; PULSE 81; RESP 16; O2SAT 93
[2016-12-17] MEDS: traZODone HCL 100 MG TAB PO SCH (21:18)
[2016-12-17 23:03] VITALS: BP 114/70; PULSE 87; RESP 16
[2016-12-18 06:03] VITALS: BP 119/66; PULSE 79; RESP 18; TEMP 98.1; O2SAT 92
[2016-12-18] MEDS: DULoxetine HCl DR 60 MG CAP PO SCH (08:39)
[2016-12-18] MEDS: buPROPion HCL 150 MG SUSTAINED RELEASE TAB PO SCH (08:39)
[2016-12-18] MEDS: LURASIDONE 40 MG TAB PO SCH (08:39)
[2016-12-18] MEDS: ARIPiprazole 30 MG TAB PO SCH (08:39)
[2016-12-18 10:14] LABS: POTASSIUM 3.9 MEQ/L (3.5-5.1)
--- NOTE | 2016-12-18 11:36 | HHI.PYPN ---
Objective Alert: Yes [place]: Person (remains O x 3. No evidence of delirium.) Mood: Calm Affect: Blunted Memory Intact: Comment (Intact) Hallucinations: Other (No AVH presently) Delusions: No Delusion Type: Other (No delusions elicited) Suicidal: Ideation (No SI) Homicidal: Ideation (No HI) Labs Test 12/18/16 08:36 Sodium Level 140 MEQ/L Potassium Level 3.9 MEQ/L Chloride Level 105 MEQ/L Carbon Dioxide Level 29.0 MEQ/L Anion Gap 6 MEQ/L Blood Urea Nitrogen 10 MG/DL Creatinine 1.06 MG/DL Estimat Glomerular Filtration 55 ML/MIN Rate Random Glucose 146 MG/DL Calcium Level 9.7 MG/DL Total Creatine Kinase 39 U/L Vitals/IOs Vital Signs Date Time Temp Pulse Resp B/P Pulse Ox O2 Delivery O2 Flow Rate FiO2 12/18/16 06:03 98.1 79 18 119/66 92 12/14/16 07:57 Room Air Assessment & Plan Problem List: (1) 

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
[2016-12-18] MEDS: ACETAMINOPHEN 325 MG TAB PO PRN (15:30)
[2016-12-18 18:08] VITALS: BP 146/74; PULSE 80; RESP 18; TEMP 97.9; O2SAT 96
== END 2016-12-18 19:45 | disposition home or self-care (01) | DRG 897 ==
LOC: NEPE 09:29 → NEDA 12-14 10:16 → H260 12-14 11:00
PROVIDERS: ADMIT Psychiatry & Neurology Psychiatry; ATTEND Psychiatry & Neurology Psychiatry
DX: F19.24 Other psychoactive substance dependence with psychoactive substance-induced mood disorder (principal); F14.10 Cocaine abuse, uncomplicated; R45.851 Suicidal ideations; F33.1 Major depressive disorder, recurrent, moderate; J44.9 Chronic obstructive pulmonary disease, unspecified; R07.89 Other chest pain; F41.9 Anxiety disorder, unspecified; K21.9 Gastro-esophageal reflux disease without esophagitis; G43.909 Migraine, unspecified, not intractable, without status migrainosus; F17.210 Nicotine dependence, cigarettes, uncomplicated
CPT/HCPCS: 71010; 80048; 80061; 80307; 82550; 82552; 83036; 84484; 85025; 93005; 96374; J2060

== ENCOUNTER 2017-01-16 13:56 | Emergency (ER) | payer MEDICARE, OTHER ==
[~2017-01-16] VITALS: Ht 157.5 cm; Wt 46.0 kg
[~2017-01-16 13:56] MED LIST changes: -CYMB60CA PO; +DULO1CAP3 PO; -HYDR-3533 PO; -IBUP-232 PO; +NITR100C4 PO; +NITR1CAP36 PO; +OMEP20TA PO; +PANT20 PO; -PRED20 PO; -XANA2TAB2 PO
[2017-01-16 14:12] VITALS: BP 115/63; PULSE 85; RESP 22; TEMP 98.4; O2SAT 98
[2017-01-16] MEDS ORDERED: SODIUM CHLORID 0.9% 500 ML INJ 500 ML IV ONE (14:15)
[2017-01-16] MEDS ORDERED: ASPIRIN 325 MG TAB PO ONE (14:15)
[2017-01-16 14:42] LABS: AUTOMATED NEUTROPHIL # 4.3 TH/MM3 (1.8-7.7); BASOPHIL % 0.5 % (0.0-2.0); EOSINOPHIL # 0.1 TH/MM3 (0-0.4); EOSINOPHIL % 2.2 % (0.0-4.0); HEMATOCRIT 36.4 % (35.0-46.0); HEMO FLAGS DIFF FINAL; LYMPH % 25.9 % (9.0-44.0); LYMPHOCYTE # 1.8 TH/MM3 (1.0-4.8); MEAN CELL VOLUME 90.6 FL (80.0-100.0); MEAN CORPUSCULAR HEMOGLOBIN 31.6 PG (27.0-34.0); MEAN CORPUSCULAR HGB CONC 34.8 % (32.0-36.0); MONO % 8.2 % (0.0-8.0); NEUT % 63.2 % (16.0-70.0); PLATELET COUNT 226 TH/MM3 (150-450); RED BLOOD COUNT 4.02 MIL/MM3 (4.00-5.30); RED CELL DISTRIBUTION WIDTH 12.6 % (11.6-17.2); WHITE BLOOD COUNT 6.8 TH/MM3 (4.0-11.0)
--- NOTE | 2017-01-16 14:43 | RADRPT ---
EXAM DATE/TIME: 01/16/2017 14:11 [place] COMPARISON: CT THORACIC SPINE W/O CONTRAST, December 26, 2016, 23:57. CHEST SINGLE AP, December 13, 2016, 10:01. INDICATIONS : Chest pain MEDICAL HISTORY : Myocardial infarction. SURGICAL HISTORY : Loop recorder ENCOUNTER: Initial ACUITY: 1 day PAIN SCORE: 7/10 LOCATION: chest FINDINGS: A single view of the chest demonstrates the lungs to be symmetrically aerated with scarring/atelectas is just above the left hemidiaphragm. The cardiomediastinal contours are unremarkable. Osseous stru ctures are intact with some calcification of intervertebral disc at T10-11 and metallic densities pro jecting over T12 likely related to prior surgical intervention. Mild dextroscoliosis of the thoracolu mbar spine. CONCLUSION: Minimal atelectasis/scarring in the left base. Lungs are otherwise clear. Brandon Laughlin MD on January 16, 2017 at 14:36 Board Certified Radiologist. This report was verified electronically.
[2017-01-16 15:07] LABS: INTERNATIONAL NORMALIZED RATIO 0.9 RATIO; PROTHROMBIN TIME - PATIENT 10.4 SEC (9.8-11.6)
--- NOTE | 2017-01-16 15:07 | PD ---
HPI Chief Complaint: Chest Pain Time Seen by Provider: 14:59 Travel History International Travel<30 days: No Contact w/Intl Traveler<30days: No Traveled to known affect area: No History of Present Illness HPI 51 yo female here for evaluation of left sided chest pain. Came via [facility] for evaluation of this. history of "minor" heart attack and loop recorder which was removed per patient. Family history of heart disease per patient. Pain with some SOB. Nothing makes it better or worst. Took aspirin today. Not given anything on the way here. Per patient pain is 6/10, sharp. Patient states that she does have a history of substance abuse and she did use cocaine 3 days ago but she denies any recent use. No recent travel. Has no sole tier. Patient does not radiate. No abdominal pain. No nausea or vomiting. No history of hypertension and high cholesterol and diabetes. Denies any trauma. Pain started an hour before coming. PFSH Past Medical History Hx Anticoagulant Therapy: No Arthritis: Yes Asthma: Yes Bipolar Disorder: Yes Anxiety: Yes Depression: Yes Heart Rhythm Problems: No Cancer: No Cardiovascular Problems: Yes High Cholesterol: No Chemotherapy: No Chest Pain: Yes Congestive Heart Failure: No COPD: Yes Cerebrovascular Accident: No Diabetes: No Diminished Hearing: No Endocrine: No Gastrointestinal Disorders: No GERD: Yes Glaucoma: No Genitourinary: No Headaches: Yes (Migraines) Hepatitis: No Hiatal Hernia: No Herniated Disk: Yes ("BULGING DISCS FROM OLD WORK INJURY IN 1988") Hypertension: No Immune Disorder: No Implanted Vascular Access Dvce: Yes Musculoskeletal: Yes Neurologic: Yes Psychiatric: Yes Reproductive: No Respiratory: Yes Integumentary: No Immunizations Current: Yes Migraines: Yes Pneumonia: Yes Radiation Therapy: No Seizures: No Sleep Apnea: No Thyroid Disease: No Ulcer: No Influenza Vaccination: No ?: Not Menopausal: Yes : 1 : 1 Ovarian Cysts: Yes Dilation and Curettage (D&C): Yes (X 3) Past Surgical History Abdominal Surgery: No Body Medical Devices: "WIRES STILL IN FROM SPINAL CORD STIMULATOR" Cardiac Surgery: Yes (MICROCHIP MONITOR :REMOVED 07/15/16) Ear Surgery: No Endocrine Surgery: No Eye Surgery: No Genitourinary Surgery: No Gynecologic Surgery: Yes (OVARIAN CYST) Hysterectomy: No Neurologic Surgery: No Oral Surgery: Yes (toncilectomy) Thoracic Surgery: No Tonsillectomy: Yes Other Surgery: Yes (SINUS, back multiple and right knee) Family History Family Myocardial Infarction: Yes (FATHER) Social History Alcohol Use: Yes (RARE) Tobacco Use: Yes (1/2 PPD) Substance Use: Yes (CRACK, COCAINE, BENZO'S) Allergies-Medications (Allergen,Severity, Reaction): Coded Allergies: Amoxicillin (Verified Allergy, Severe, HIVES, 01/16/17) Diphenhydramine (Verified Allergy, Severe, Hives, 01/16/17) fACIAL SWELLING AND HIVES - NURSE VERIFIED WITH PATIENT, BUT WAS UNABLE TO UPDATE IN [facility] FROM AN ADR TO ALLERGY, ASKED PHARMACY TO ENTER FOR HER. Phenergan (Verified Allergy, Severe, HIVES/FACIAL SWELLING, 01/16/17) Toradol (Verified Allergy, Severe, HIVES/FACIAL SWELLING, 01/16/17) Darvocet-N 100 (Verified Adverse Reaction, Severe, HIVES/FACIAL SWELLING, 01/16/17) Medrol (Verified Adverse Reaction, Severe, Swelling, 01/16/17) HIVES Morphine (Verified Adverse Reaction, Severe, HEADACHE, 01/16/17) Reported Meds & Prescriptions Reported Meds & Active Scripts Active Trazodone (Trazodone HCl) 300 Mg Tab 300 Mg PO HS Protonix (Pantoprazole Sodium) 20 Mg Tab 20 Mg PO DAILY Nitrofurantoin Monohydrate Macrocrystals (Nitrofurantoin Monoh/Nitrofur Macro) 100 Mg Cap 100 Mg PO Q12HR Latuda (Lurasidone) 60 Mg Tab 60 Mg PO DAILY Duloxetine DR (Duloxetine HCl) 60 Mg Capdr 60 Mg PO DAILY Wellbutrin SR 12 HR (Bupropion HCl) 150 Mg Tab 150 Mg PO DAILY Abilify (Aripiprazole) 30 Mg Tab 30 Mg PO DAILY Nitrofurantoin Macrocrystal 100 Mg Cap 100 Mg PO BID Omeprazole 20 Mg Tab 20 Mg PO DAILY Reported Latuda (Lurasidone) 60 Mg Tab 60 Mg PO DAILY Trazodone (Trazodone HCl) 300 Mg Tab 300 Mg PO HS Review of Systems Except as stated in HPI: all other systems reviewed are Neg Physical Exam Narrative GENERAL: SKIN: Warm and dry. HEAD: Atraumatic. Normocephalic. EYES: Pupils equal and round. No scleral icterus. No injection or drainage. ENT: No nasal bleeding or discharge. Mucous membranes pink and moist. Tongue is midline. No uvula deviation. NECK: Trachea midline. No JVD. CARDIOVASCULAR: Regular rate and rhythm. No murmurs, S3, S4. RESPIRATORY: No accessory muscle use. Clear to auscultation. Breath sounds equal bilaterally. GASTROINTESTINAL: Abdomen soft, non-tender, nondistended. Hepatic and splenic margins not palpable. MUSCULOSKELETAL: Extremities without clubbing, cyanosis, or edema. No obvious deformities. Full range of motion of the upper and lower extremities bilaterally. 2+ pulses bilaterally. NEUROLOGICAL: Awake and alert. No obvious cranial nerve deficits. Motor grossly within normal limits. Five out of 5 muscle strength in the arms and legs. Normal speech. PSYCHIATRIC: Appropriate mood and affect; insight and judgment normal. Data Data Last Documented VS Vital Signs Date Time Temp Pulse Resp B/P Pulse Ox O2 Delivery O2 Flow Rate FiO2 01/16/17 14:14 99 Room Air 01/16/17 14:12 98.4 85 22 115/63 Orders Electrocardiogram (01/16/17 14:07) Basic Metabolic Panel (Bmp) (01/16/17 14:07) Ckmb (Isoenzyme) Profile (01/16/17 14:07) Complete Blood Count With Diff (01/16/17 14:07) Magnesium (Mg) (01/16/17 14:07) Prothrombin Time / Inr (Pt) (01/16/17 14:07) Act Partial Throm Time (Ptt) (01/16/17 14:07) Troponin I (01/16/17 14:07) Lipase (01/16/17 14:07) Chest, Single Ap (01/16/17 14:07) Ecg Monitoring (01/16/17 14:07) Bilateral Bp Monitoring (01/16/17 14:07) Iv Access Insert/Monitor (01/16/17 14:07) Oximetry (01/16/17 14:07) Oxygen Administration (01/16/17 14:07) Aspirin (Aspirin) (01/16/17 14:15) Sodium Chlorid 0.9% 500 Ml Inj (Ns 500 M (01/16/17 14:15) Drug Screen, Random Urine (01/16/17 14:16) Labs Laboratory Tests Test 01/16/17 14:30 White Blood Count 6.8 TH/MM3 Red Blood Count 4.02 MIL/MM3 Hemoglobin 12.7 GM/DL Hematocrit 36.4 % Mean Corpuscular Volume 90.6 FL Mean Corpuscular Hemoglobin 31.6 PG Mean Corpuscular Hemoglobin 34.8 % Concent Red Cell Distribution Width 12.6 % Platelet Count 226 TH/MM3 Mean Platelet Volume 6.9 FL Neutrophils (%) (Auto) 63.2 % Lymphocytes (%) (Auto) 25.9 % Monocytes (%) (Auto) 8.2 % Eosinophils (%) (Auto) 2.2 % Basophils (%) (Auto) 0.5 % Neutrophils # (Auto) 4.3 TH/MM3 Lymphocytes # (Auto) 1.8 TH/MM3 Monocytes # (Auto) 0.6 TH/MM3 Eosinophils # (Auto) 0.1 TH/MM3 Basophils # (Auto) 0.0 TH/MM3 CBC Comment DIFF FINAL Differential Comment Prothrombin Time 10.4 SEC Prothromb Time International 0.9 RATIO Ratio Activated Partial 23.4 SEC Thromboplast Time Sodium Level 140 MEQ/L Potassium Level 3.4 MEQ/L Chloride Level 108 MEQ/L Carbon Dioxide Level 29.4 MEQ/L Anion Gap 3 MEQ/L Blood Urea Nitrogen 14 MG/DL Creatinine 1.00 MG/DL Estimat Glomerular Filtration 59 ML/MIN Rate Random Glucose 95 MG/DL Calcium Level 8.0 MG/DL Magnesium Level 2.1 MG/DL Total Creatine Kinase 47 U/L Troponin I LESS THAN 0.02 NG/ML Lipase 332 U/L MDM Medical Decision Making Medical Screen Exam Complete: Yes Emergency Medical Condition: Yes Medical Record Reviewed: Yes Interpretation(s) EKG shows sinus rhythm with no sign of acute ischemia or arrhythmia. Read by me and attending. Differential Diagnosis Chest pain versus atypical chest pain versus angina versus pancreatitis versus substance abuse chest pain Narrative Course 51-year-old female that presents to the ED for evaluation of chest pain. Patient was properly examined and was found to have signs and symptoms concerning for chest pain. Labs and imaging were ordered. Labs and imaging were essentially unremarkable. My attending evaluated the patient with me and recommends discharge. Patient has been asking for food. I suspect some malingering. This appears to be a typical chest pain. My attending agrees with plan. See personally recommended the patient can be discharged. Patient agrees with this plan. Follow with PCP. See ED for worsening symptoms. Diagnosis Primary Impression: Atypical chest pain Patient Instructions: General Instructions Additional Instructions: Follow with PCP. See ED worsening symptoms. Med/Other Pt SpecificInfo: No Change to Meds Disposition: 01 DISCHARGE HOME Condition: Stable Fco Rick Jan 16, 2017 15:07
[2017-01-16 15:08] LABS: APTT (PATIENT) 23.4 SEC (24.3-30.1)
[2017-01-16 15:16] LABS: ANION GAP 3 MEQ/L (5-15); BICARBONATE 29.4 MEQ/L (21.0-32.0); BLOOD UREA NITROGEN 14 MG/DL (7-18); CHLORIDE 108 MEQ/L (98-107); GLOMERULAR FILTRATION RATE 59 ML/MIN (>89); MAGNESIUM 2.1 MG/DL (1.5-2.5); POTASSIUM 3.4 MEQ/L (3.5-5.1); SODIUM (NA) 140 MEQ/L (136-145)
[2017-01-16 15:19] LABS: CREATINE KINASE 47 U/L (26-192)
[2017-01-16 16:03] VITALS: BP 117/77
--- NOTE | 2017-01-17 16:50 | EKG ---
Date Performed: 01/16/2017 Time Performed: 14:07:02 PTAGE: 51 years EKG: Sinus rhythm POSSIBLE LEFT ATRIAL ENLARGEMENT Slight right ventricular conduction disturbabce. When compared to p revious tracing, no significant change. BORDERLINE ECG PREVIOUS TRACING : 12/13/2016 16.44 DOCTOR: Marques Donis Interpretating Date/Time 01/17/2017 16:48:42
== END 2017-01-16 16:10 | disposition home or self-care (01) ==
LOC: NEPE 13:56
DX: R07.89 Other chest pain (principal); R06.02 Shortness of breath; R94.31 Abnormal electrocardiogram [ECG] [EKG]; F17.200 Nicotine dependence, unspecified, uncomplicated; Z79.899 Other long term (current) drug therapy; Z87.39 Personal history of other diseases of the musculoskeletal system and connective tissue; Z87.09 Personal history of other diseases of the respiratory system; Z86.59 Personal history of other mental and behavioral disorders; Z86.79 Personal history of other diseases of the circulatory system; Z87.19 Personal history of other diseases of the digestive system; Z86.69 Personal history of other diseases of the nervous system and sense organs
CPT/HCPCS: 71010; 80048; 82550; 83690; 83735; 84484; 85025; 85610; 85730; 93005; 99285; J7040

== ENCOUNTER 2017-01-22 13:52 | Observation (INO) | payer MEDICARE, OTHER ==
[~2017-01-22] VITALS: Ht 157.5 cm; Wt 43.0 kg
[2017-01-22 14:04] VITALS: BP 91/59; PULSE 103; RESP 20; TEMP 99.1; O2SAT 98
[2017-01-22] MEDS ORDERED: SODIUM CHLORID 0.9% 500 ML INJ 500 ML IV ONE (14:30)
[2017-01-22] MEDS ORDERED: SODIUM CHLORIDE 0.9% FLUSH 10 ML FLUSH IVF PRN (14:30)
[2017-01-22 14:31] VITALS: O2SAT 97
--- NOTE | 2017-01-22 14:47 | PD ---
HPI Chief Complaint: Cardiac Complaint Time Seen by Provider: 14:18 Travel History International Travel<30 days: No Contact w/Intl Traveler<30days: No Traveled to known affect area: No History of Present Illness HPI Patient is a 51-year-old female who presents to emergency with complaints of chest pain. Patient reports that 3 hours prior to arrival to the emergency room , she is walking and began to have left sided chest pain. Patient reports that her chest pain radiates that her left arm, reports that pain feels like a pressure sensation. Reports that she felt short of breath and diaphoretic with her symptoms. Patient admits to using crack cocaine a few days ago, denies any other drugs. Reports that she has had chest pain symptoms similar to today's symptoms in the past, reports "I don't know why I keep having chest pain." PFSH Past Medical History Hx Anticoagulant Therapy: No Arthritis: Yes Asthma: Yes Bipolar Disorder: Yes Anxiety: Yes Depression: Yes Heart Rhythm Problems: No Cancer: No Cardiovascular Problems: Yes High Cholesterol: No Chemotherapy: No Chest Pain: Yes Congestive Heart Failure: No COPD: Yes Cerebrovascular Accident: No Diabetes: No Diminished Hearing: No Endocrine: No Gastrointestinal Disorders: No GERD: Yes Glaucoma: No Genitourinary: No Headaches: Yes (Migraines) Hepatitis: No Hiatal Hernia: No Herniated Disk: Yes ("BULGING DISCS FROM OLD WORK INJURY IN 1988") Hypertension: No Immune Disorder: No Implanted Vascular Access Dvce: Yes Musculoskeletal: Yes Neurologic: Yes Psychiatric: Yes Reproductive: No Respiratory: Yes Integumentary: No Immunizations Current: Yes Migraines: Yes Pneumonia: Yes Radiation Therapy: No Seizures: No Sleep Apnea: No Thyroid Disease: No Ulcer: No Tetanus Vaccination: < 5 Years ?: Not Menopausal: Yes : 1 : 1 Ovarian Cysts: Yes Dilation and Curettage (D&C): Yes (X 3) Past Surgical History Abdominal Surgery: No Body Medical Devices: "WIRES STILL IN FROM SPINAL CORD STIMULATOR" Cardiac Surgery: Yes (MICROCHIP MONITOR :REMOVED 07/15/16) Ear Surgery: No Endocrine Surgery: No Eye Surgery: No Genitourinary Surgery: No Gynecologic Surgery: Yes (OVARIAN CYST) Hysterectomy: No Neurologic Surgery: No Oral Surgery: Yes Thoracic Surgery: No Tonsillectomy: Yes Other Surgery: Yes (SINUS, back multiple and right knee) Social History Alcohol Use: Yes (RARE) Tobacco Use: Yes (1/2 PPD) Substance Use: Yes (CRACK (01/19/17), COCAINE, BENZO'S) Allergies-Medications (Allergen,Severity, Reaction): Coded Allergies: amoxicillin (Unverified Allergy, Severe, HIVES, 01/22/17) diphenhydramine (Unverified Allergy, Severe, Hives, 01/22/17) fACIAL SWELLING AND HIVES - NURSE VERIFIED WITH PATIENT, BUT WAS UNABLE TO UPDATE IN [employer] [place] FROM AN ADR TO ALLERGY, ASKED PHARMACY TO ENTER FOR HER. ketorolac (Unverified Allergy, Severe, HIVES/FACIAL SWELLING, 01/22/17) promethazine (Unverified Allergy, Severe, HIVES/FACIAL SWELLING, 01/22/17) methylprednisolone (Unverified Adverse Reaction, Severe, Swelling, 01/22/17 ) HIVES morphine (Unverified Adverse Reaction, Severe, HEADACHE, 01/22/17) propoxyphene (Unverified Adverse Reaction, Severe, HIVES/FACIAL SWELLING, 01/22/17) Reported Meds & Prescriptions Reported Meds & Active Scripts Active Trazodone (Trazodone HCl) 300 Mg Tab 300 Mg PO HS Protonix (Pantoprazole Sodium) 20 Mg Tab 20 Mg PO DAILY Nitrofurantoin Monohydrate Macrocrystals (Nitrofurantoin Monoh/Nitrofur Macro) 100 Mg Cap 100 Mg PO Q12HR Latuda (Lurasidone) 60 Mg Tab 60 Mg PO DAILY Duloxetine DR (Duloxetine HCl) 60 Mg Capdr 60 Mg PO DAILY Wellbutrin SR 12 HR (Bupropion HCl) 150 Mg Tab 150 Mg PO DAILY Abilify (Aripiprazole) 30 Mg Tab 30 Mg PO DAILY Nitrofurantoin Macrocrystal 100 Mg Cap 100 Mg PO BID Omeprazole 20 Mg Tab 20 Mg PO DAILY Reported Latuda (Lurasidone) 60 Mg Tab 60 Mg PO DAILY Trazodone (Trazodone HCl) 300 Mg Tab 300 Mg PO HS Review of Systems General / Constitutional: No: Fever Eyes: No: Visual changes HENT: No: Headaches Cardiovascular: Positive: Chest Pain or Discomfort, Diaphoresis Respiratory: No: Shortness of Breath Gastrointestinal: No: Abdominal Pain Genitourinary: No: Dysuria Musculoskeletal: No: Pain Skin: No Rash Neurologic: No: Weakness Psychiatric: Positive: Substance Abuse, No: Depression Endocrine: No: Polydipsia Hematologic/Lymphatic: No: Easy Bruising Physical Exam Narrative GENERAL: Mild distress SKIN: Focused skin assessment warm/dry. HEAD: Atraumatic. Normocephalic. EYES: Pupils equal and round. No scleral icterus. No injection or drainage. ENT: No nasal bleeding or discharge. Mucous membranes pink and moist. NECK: Trachea midline. No JVD. CARDIOVASCULAR: Regular rate and rhythm. No murmur appreciated. RESPIRATORY: No accessory muscle use. Clear to auscultation. Breath sounds equal bilaterally. GASTROINTESTINAL: Abdomen soft, non-tender, nondistended. Hepatic and splenic margins not palpable. MUSCULOSKELETAL: No obvious deformities. No clubbing. No cyanosis. No edema. NEUROLOGICAL: Awake and alert. No obvious cranial nerve deficits. Motor grossly within normal limits. Normal speech. PSYCHIATRIC: Flat affec Data Data Last Documented VS Vital Signs Date Time Temp Pulse Resp B/P Pulse Ox O2 Delivery O2 Flow Rate FiO2 01/22/17 14:31 97 Room Air 01/22/17 14:04 99.1 103 20 91/59 Orders Electrocardiogram (01/22/17 ) Electrocardiogram (01/22/17 14:19) Ckmb (Isoenzyme) Profile (01/22/17 14:19) Complete Blood Count With Diff (01/22/17 14:19) Comprehensive Metabolic Panel (01/22/17 14:19) D-Dimer (01/22/17 14:19) Magnesium (Mg) (01/22/17 14:19) Prothrombin Time / Inr (Pt) (01/22/17 14:19) Act Partial Throm Time (Ptt) (01/22/17 14:19) Troponin I (01/22/17 14:19) Lipase (01/22/17 14:19) Chest, Single Ap (01/22/17 14:19) Ecg Monitoring (01/22/17 14:19) Iv Access Insert/Monitor (01/22/17 14:19) Oximetry (01/22/17 14:19) Sodium Chloride 0.9% Flush (Ns Flush) (01/22/17 14:30) Sodium Chlorid 0.9% 500 Ml Inj (Ns 500 M (01/22/17 14:30) Drug Screen, Random Urine (01/22/17 14:19) Ed Urine Pregnancytest Poc (01/22/17 14:19) Aspirin Chew (Aspirin Chew) (01/22/17 16:15) Nitroglycerin 0.4 Mg Q5m X3 (01/22/17 16:15) Labs Laboratory Tests Test 01/22/17 01/22/17 01/22/17 14:31 14:38 15:12 White Blood Count 9.3 TH/MM3 Red Blood Count 4.09 MIL/MM3 Hemoglobin 13.2 GM/DL Hematocrit 37.2 % Mean Corpuscular Volume 91.0 FL Mean Corpuscular Hemoglobin 32.4 PG Mean Corpuscular Hemoglobin 35.6 % Concent Red Cell Distribution Width 12.9 % Platelet Count 222 TH/MM3 Mean Platelet Volume 7.6 FL Neutrophils (%) (Auto) 67.5 % Lymphocytes (%) (Auto) 21.5 % Monocytes (%) (Auto) 6.3 % Eosinophils (%) (Auto) 2.1 % Basophils (%) (Auto) 2.6 % Neutrophils # (Auto) 6.3 TH/MM3 Lymphocytes # (Auto) 2.0 TH/MM3 Monocytes # (Auto) 0.6 TH/MM3 Eosinophils # (Auto) 0.2 TH/MM3 Basophils # (Auto) 0.2 TH/MM3 CBC Comment DIFF FINAL Differential Comment Sodium Level 141 MEQ/L Potassium Level 3.8 MEQ/L Chloride Level 107 MEQ/L Carbon Dioxide Level 25.5 MEQ/L Anion Gap 9 MEQ/L Blood Urea Nitrogen 13 MG/DL Creatinine 1.33 MG/DL Estimat Glomerular Filtration 42 ML/MIN Rate Random Glucose 70 MG/DL Calcium Level 9.4 MG/DL Magnesium Level 2.2 MG/DL Total Bilirubin 0.9 MG/DL Aspartate Amino Transf 11 U/L (AST/SGOT) Alanine Aminotransferase 18 U/L (ALT/SGPT) Alkaline Phosphatase 43 U/L Total Creatine Kinase 43 U/L Troponin I LESS THAN 0.02 NG/ML Total Protein 6.8 GM/DL Albumin 3.3 GM/DL Lipase 377 U/L Prothrombin Time 10.7 SEC Prothromb Time International 1.0 RATIO Ratio Activated Partial 23.8 SEC Thromboplast Time D-Dimer Quantitative (PE/DVT) 0.31 MG/L FEU Urine Opiates Screen NEG Urine Barbiturates Screen NEG Urine Amphetamines Screen NEG Urine Benzodiazepines Screen NEG Urine Cocaine Screen POS Urine Cannabinoids Screen POS MDM Medical Decision Making Medical Screen Exam Complete: Yes Emergency Medical Condition: Yes Interpretation(s) EKG at 1426: NSR at 90bpm, qt/qtc: 349/396, no acute st or t wave changes Vital Signs Date Time Temp Pulse Resp B/P Pulse Ox O2 Delivery O2 Flow Rate FiO2 01/22/17 14:31 97 Room Air 01/22/17 14:04 99.1 103 20 91/59 98 Differential Diagnosis Differential includes ACS, arrhythmia, cocaine abuse, electrolyte abnormality, PE Narrative Course Patient is a 51 year old female who presents to the ER for evaluation of chest pain. Patient reports that chest pain is located to her left chest and radiates down her left arm. Reports pain as a "pressure" to her chest with associated diaphoresis with sob and palpitations. Denies hx of acs or mi in the past. Patient was placed on a analog ic design architect upon arrival to emergency room. An EKG was obtained, patient with no acute ST-T wave changes. Lab work including cardiac enzymes and xray of the chest ordered. Laboratory Tests Test 01/22/17 01/22/17 01/22/17 14:31 14:38 15:12 White Blood Count 9.3 TH/MM3 (4.0-11.0) Red Blood Count 4.09 MIL/MM3 (4.00-5.30) Hemoglobin 13.2 GM/DL (11.6-15.3) Hematocrit 37.2 % (35.0-46.0) Mean Corpuscular Volume 91.0 FL (80.0-100.0) Mean Corpuscular Hemoglobin 32.4 PG (27.0-34.0) Mean Corpuscular Hemoglobin 35.6 % Concent (32.0-36.0) Red Cell Distribution Width 12.9 % (11.6-17.2) Platelet Count 222 TH/MM3 (150-450) Mean Platelet Volume 7.6 FL (7.0-11.0) Neutrophils (%) (Auto) 67.5 % (16.0-70.0) Lymphocytes (%) (Auto) 21.5 % (9.0-44.0) Monocytes (%) (Auto) 6.3 % (0.0-8.0) Eosinophils (%) (Auto) 2.1 % (0.0-4.0) Basophils (%) (Auto) 2.6 % (0.0-2.0) Neutrophils # (Auto) 6.3 TH/MM3 (1.8-7.7) Lymphocytes # (Auto) 2.0 TH/MM3 (1.0-4.8) Monocytes # (Auto) 0.6 TH/MM3 (0-0.9) Eosinophils # (Auto) 0.2 TH/MM3 (0-0.4) Basophils # (Auto) 0.2 TH/MM3 (0-0.2) CBC Comment DIFF FINAL Differential Comment Sodium Level 141 MEQ/L (136-145) Potassium Level 3.8 MEQ/L (3.5-5.1) Chloride Level 107 MEQ/L (98-107) Carbon Dioxide Level 25.5 MEQ/L (21.0-32.0) Anion Gap 9 MEQ/L (5-15) Blood Urea Nitrogen 13 MG/DL (7-18) Creatinine 1.33 MG/DL (0.50-1.00) Estimat Glomerular Filtration 42 ML/MIN (>89) Rate Random Glucose 70 MG/DL (74-106) Calcium Level 9.4 MG/DL (8.5-10.1) Magnesium Level 2.2 MG/DL (1.5-2.5) Total Bilirubin 0.9 MG/DL (0.2-1.0) Aspartate Amino Transf 11 U/L (15-37) (AST/SGOT) Alanine Aminotransferase 18 U/L (10-53) (ALT/SGPT) Alkaline Phosphatase 43 U/L (45-117) Total Creatine Kinase 43 U/L (26-192) Troponin I LESS THAN 0.02 NG/ML (0.02-0.05) Total Protein 6.8 GM/DL (6.4-8.2) Albumin 3.3 GM/DL (3.4-5.0) Lipase 377 U/L (73-393) Prothrombin Time 10.7 SEC (9.8-11.6) Prothromb Time International 1.0 RATIO Ratio Activated Partial 23.8 SEC Thromboplast Time (24.3-30.1) D-Dimer Quantitative (PE/DVT) 0.31 MG/L FEU (0.00-0.50) Urine Opiates Screen NEG (NEG) Urine Barbiturates Screen NEG (NEG) Urine Amphetamines Screen NEG (NEG) Urine Benzodiazepines Screen NEG (NEG) Urine Cocaine Screen POS (NEG) Urine Cannabinoids Screen POS (NEG) Last Impressions Chest X-Ray 01/22/17 1419 Signed Impressions: Service Date/Time: Friday, January 22, 2017 15:02 - CONCLUSION: No acute disease. Chris Potter MD FACR plan to obs patient for cocaine chest pain rule out Diagnosis Primary Impression: Chest pain Qualified Code: R07.9 - Chest pain, unspecified type Additional Impression: Drug abuse Admitting Information Admitting Physician Requests: Observation Lisa Collado DO Jan 22, 2017 14:47
[2017-01-22 15:30] LABS: AUTOMATED NEUTROPHIL # 6.3 TH/MM3 (1.8-7.7); BASOPHIL # 0.2 TH/MM3 (0-0.2); BASOPHIL % 2.6 % (0.0-2.0); EOSINOPHIL # 0.2 TH/MM3 (0-0.4); EOSINOPHIL % 2.1 % (0.0-4.0); HEMATOCRIT 37.2 % (35.0-46.0); HEMO FLAGS DIFF FINAL; LYMPH % 21.5 % (9.0-44.0); MEAN CORPUSCULAR HEMOGLOBIN 32.4 PG (27.0-34.0); MEAN CORPUSCULAR HGB CONC 35.6 % (32.0-36.0); MONO % 6.3 % (0.0-8.0); NEUT % 67.5 % (16.0-70.0); PLATELET COUNT 222 TH/MM3 (150-450); RED BLOOD COUNT 4.09 MIL/MM3 (4.00-5.30); RED CELL DISTRIBUTION WIDTH 12.9 % (11.6-17.2); WHITE BLOOD COUNT 9.3 TH/MM3 (4.0-11.0)
--- NOTE | 2017-01-22 15:38 | RADRPT ---
EXAM DATE/TIME: 01/22/2017 15:02 [facility] COMPARISON: CHEST SINGLE AP, January 16, 2017, 14:11. INDICATIONS : Chest pain on and off for a few weeks. MEDICAL HISTORY : Chronic obstructive pulmonary disease. SURGICAL HISTORY : None. ENCOUNTER: Initial ACUITY: 2 weeks PAIN SCORE: 6/10 LOCATION: Bilateral chest FINDINGS: A single view of the chest demonstrates the lungs to be symmetrically aerated without evidence of mas s, infiltrate or effusion. The cardiomediastinal contours are unremarkable. Osseous structures are intact. CONCLUSION: No acute disease. Chris Potter MD FACR on January 22, 2017 at 15:36 Board Certified Radiologist. This report was verified electronically.
[2017-01-22 15:45] LABS: APTT (PATIENT) 23.8 SEC (24.3-30.1); PROTHROMBIN TIME - PATIENT 10.7 SEC (9.8-11.6)
[2017-01-22 15:59] LABS: ALKALINE PHOSPHATASE 43 U/L (45-117); ALT (GPT) 18 U/L (10-53); ANION GAP 9 MEQ/L (5-15); AST (GOT) 11 U/L (15-37); BICARBONATE 25.5 MEQ/L (21.0-32.0); BLOOD UREA NITROGEN 13 MG/DL (7-18); CHLORIDE 107 MEQ/L (98-107); GLOMERULAR FILTRATION RATE 42 ML/MIN (>89); MAGNESIUM 2.2 MG/DL (1.5-2.5); POTASSIUM 3.8 MEQ/L (3.5-5.1); SODIUM (NA) 141 MEQ/L (136-145); TOTAL BILIRUBIN ADULT 0.9 MG/DL (0.2-1.0)
[2017-01-22 16:06] LABS: CREATINE KINASE 43 U/L (26-192)
[2017-01-22] MEDS: NITROGLYCERIN 0.4 MG SL 25 TABS/BTL SL SCH ×3 (16:15→16:25)
[2017-01-22] MEDS ORDERED: ASPIRIN 81 MG CHEW TAB PO ONE (16:15)
[2017-01-22 16:34] VITALS: BP 115/74; PULSE 73; RESP 18; O2SAT 97
[2017-01-22 18:05] VITALS: BP 105/80; PULSE 74; RESP 17; O2SAT 97
[2017-01-22] MEDS ORDERED: SODIUM CHLORIDE 0.9% FLUSH 10 ML FLUSH IV FLUSH PRN (18:30)
[2017-01-22] MEDS ORDERED: ACETAMINOPHEN 500 MG CPLT PO PRN (18:30)
[2017-01-22 19:02] VITALS: O2SAT 95
[2017-01-22 20:25] LABS: CREATINE KINASE 31 U/L (26-192)
[2017-01-22] MEDS: SODIUM CHLORIDE 0.9% FLUSH 10 ML FLUSH IV FLUSH SCH (21:23)
[2017-01-22 21:59] VITALS: BP 99/57; PULSE 69; RESP 18; TEMP 98.5; O2SAT 98
[2017-01-22 23:37] LABS: CREATINE KINASE 27 U/L (26-192)
[2017-01-23 00:22] VITALS: BP 100/60; PULSE 82; RESP 18; TEMP 98; O2SAT 98
[2017-01-23 04:23] VITALS: BP 104/60; PULSE 69; RESP 18; TEMP 98; O2SAT 96
[2017-01-23 07:27] VITALS: BP 100/60; PULSE 68; RESP 16; TEMP 98.3; O2SAT 95
[2017-01-23] MEDS ORDERED: RESP: ALBUTEROL 2.5 MG/IPRATROPIUM 0.5 MG NEB (SCH) INH ONE (08:30)
[2017-01-23 08:57] VITALS: PULSE 54
--- NOTE | 2017-01-23 09:28 | HHI.HP ---
HPI Primary Care Physician Non-Staff Chief Complaint Chest pain History of Present Illness This is a 51-year-old female that presents to ED with a complaint of a left sharp chest pain with radiation down her left arm that began while walking yesterday afternoon. She states the discomfort is still present. Days it is worse with movements improved with lying still. She was nauseous with it but denies diaphoresis or shortness of breath. Denies history of CAD but states she had a stress test a few years ago and was okay. Patient is to smoking crack cocaine to 3 times a week in the last use of cocaine was 3 days ago. Denies recent illness. Denies recent travel. She states that she has been homeless for the last 2 weeks. Review of Systems General: Patient denies fevers, chills recent, and recent travel HEENT: Patient denies headache, sore throat, difficulty swallowing. Cardiovascular: Has the chest discomfort as mentioned above. Denies sensation of heart beating rapidly or irregularly. No syncope. Denies diaphoresis. Respiratory: Denies shortness of breath or inspirational chest discomfort. Denies coughing wheezing or hemoptysis. GI: Patient was nauseous. Patient denies vomiting, diarrhea, abdominal pain, bloody stools. Musculoskeletal: Patient denies joint pain or edema. Denies calf pain or edema. Neurovascular: Patient denies numbness, tingling, weakness in extremities. Denies headache. Endocrine: Denies polyuria and polydipsia. Hematologic: Denies easy bruising. Skin: Denies rash or itching. Past Family Social History Allergies: Coded Allergies: amoxicillin (Unverified Allergy, Severe, HIVES, 01/22/17) diphenhydramine (Unverified Allergy, Severe, Hives, 01/22/17) fACIAL SWELLING AND HIVES - NURSE VERIFIED WITH PATIENT, BUT WAS UNABLE TO UPDATE IN [employer] FROM AN ADR TO ALLERGY, ASKED PHARMACY TO ENTER FOR HER. ketorolac (Unverified Allergy, Severe, HIVES/FACIAL SWELLING, 01/22/17) promethazine (Unverified Allergy, Severe, HIVES/FACIAL SWELLING, 01/22/17) methylprednisolone (Unverified Adverse Reaction, Severe, Swelling, 01/22/17 ) HIVES morphine (Unverified Adverse Reaction, Severe, HEADACHE, 01/22/17) propoxyphene (Unverified Adverse Reaction, Severe, HIVES/FACIAL SWELLING, 01/22/17) Past Medical History Bipolar disorder, chronic back pain, cocaine abuse, tobacco abuse. Denies hypertension, hyperlipidemia, diabetes, and CAD. Past Surgical History Noncontributory. Reported Medications Reported Meds & Active Scripts Active Trazodone (Trazodone HCl) 300 Mg Tab 300 Mg PO HS Protonix (Pantoprazole Sodium) 20 Mg Tab 20 Mg PO DAILY Nitrofurantoin Monohydrate Macrocrystals (Nitrofurantoin Monoh/Nitrofur Macro) 100 Mg Cap 100 Mg PO Q12HR Latuda (Lurasidone) 60 Mg Tab 60 Mg PO DAILY Duloxetine DR (Duloxetine HCl) 60 Mg Capdr 60 Mg PO DAILY Wellbutrin SR 12 HR (Bupropion HCl) 150 Mg Tab 150 Mg PO DAILY Abilify (Aripiprazole) 30 Mg Tab 30 Mg PO DAILY Nitrofurantoin Macrocrystal 100 Mg Cap 100 Mg PO BID Omeprazole 20 Mg Tab 20 Mg PO DAILY Reported Latuda (Lurasidone) 60 Mg Tab 60 Mg PO DAILY Trazodone (Trazodone HCl) 300 Mg Tab 300 Mg PO HS Active Ordered Medications Current Medications Medications (Trade) Dose Ordered Sig/Abebe Route Start Time Stop Time Status Last Admin (NS Flush) 2 ml UNSCH PRN IVF 01/22/17 14:30 (NS Flush) 2 ml UNSCH PRN IV FLUSH 01/22/17 18:30 (NS Flush) 2 ml BID IV FLUSH 01/22/17 21:00 01/22/17 21:23 (Tylenol) 500 mg Q4H PRN PO 01/22/17 18:30 Family History States that her father had a CABG at age 60. Social History Patient smokes crack cocaine 2-3 times per week last time she states was 3 days ago. She smokes about one half pack of cigarettes daily for last 5 years the prior to that 1-1/2 pack of cigarettes daily for 30 years. Denies alcohol. She is homeless. She is disabled secondary to psychiatric issues. Physical Exam Vital Signs Vital Signs Date Time Temp Pulse Resp B/P Pulse Ox O2 Delivery O2 Flow Rate FiO2 01/23/17 07:27 98.3 68 16 100/60 95 01/23/17 04:23 98.0 69 18 104/60 96 01/23/17 00:22 98.0 82 18 100/60 98 01/22/17 21:59 98.5 69 18 99/57 98 01/22/17 19:02 95 01/22/17 18:05 74 17 105/80 97 Room Air 01/22/17 16:34 73 18 115/74 97 Room Air 01/22/17 14:31 97 Room Air 01/22/17 14:04 99.1 103 20 91/59 98 Physical Exam GENERAL: This is a well-nourished, well-developed patient, in no apparent distress. Patient speaks in clear complete sentences. Patient is pleasant. Patient is examined with female agronomy professor a bedside. HEENT: Head is atraumatic and normocephalic. Neck is supple without lymphadenopathy and trachea is midline. No JVD or carotid bruits. CARDIOVASCULAR: Regular rate and rhythm without murmurs, gallops, or rubs. RESPIRATORY: Clear to auscultation. Breath sounds equal bilaterally. No wheezes , rales, or rhonchi. Chest wall is tender. No use of accessory muscles. GASTROINTESTINAL: Abdomen is nontender, nondistended. Abdomen soft. No obvious pulsatile mass or bruit. No CVA tenderness. Strong femoral pulses bilaterally. Normal bowel sounds in all quadrants. MUSCULOSKELETAL: Patient is moving upper and lower extremities freely. No calf tenderness or edema, no Homans sign. Strong pulses in upper and lower extremities. NEUROLOGICAL: Patient is alert and oriented. Cranial nerves 2-12 are grossly intact. No focal deficits and speech is clear. SKIN: No rash and turgor is normal. Laboratory Laboratory Tests Test 01/22/17 01/22/17 01/22/17 01/22/17 14:31 14:38 15:12 18:40 White Blood Count 9.3 Red Blood Count 4.09 Hemoglobin 13.2 Hematocrit 37.2 Mean Corpuscular Volume 91.0 Mean Corpuscular Hemoglobin 32.4 Mean Corpuscular Hemoglobin 35.6 Concent Red Cell Distribution Width 12.9 Platelet Count 222 Mean Platelet Volume 7.6 Neutrophils (%) (Auto) 67.5 Lymphocytes (%) (Auto) 21.5 Monocytes (%) (Auto) 6.3 Eosinophils (%) (Auto) 2.1 Basophils (%) (Auto) 2.6 Neutrophils # (Auto) 6.3 Lymphocytes # (Auto) 2.0 Monocytes # (Auto) 0.6 Eosinophils # (Auto) 0.2 Basophils # (Auto) 0.2 CBC Comment DIFF FINAL Differential Comment Sodium Level 141 Potassium Level 3.8 Chloride Level 107 Carbon Dioxide Level 25.5 Anion Gap 9 Blood Urea Nitrogen 13 Creatinine 1.33 Estimat Glomerular Filtration 42 Rate Random Glucose 70 Calcium Level 9.4 Magnesium Level 2.2 Total Bilirubin 0.9 Aspartate Amino Transf 11 (AST/SGOT) Alanine Aminotransferase 18 (ALT/SGPT) Alkaline Phosphatase 43 Total Creatine Kinase 43 31 Troponin I LESS THAN 0.02 LESS THAN 0.02 Total Protein 6.8 Albumin 3.3 Lipase 377 Prothrombin Time 10.7 Prothromb Time International 1.0 Ratio Activated Partial 23.8 Thromboplast Time D-Dimer Quantitative (PE/DVT) 0.31 Urine Opiates Screen NEG Urine Barbiturates Screen NEG Urine Amphetamines Screen NEG Urine Benzodiazepines Screen NEG Urine Cocaine Screen POS Urine Cannabinoids Screen POS Test 01/22/17 22:14 Total Creatine Kinase 27 Troponin I LESS THAN 0.02 Result Diagram: 01/22/17 1431 01/22/17 1431 Imaging Last 24 hours Impressions Chest X-Ray 01/22/17 1419 Signed Impressions: Service Date/Time: Sunday, January 22, 2017 15:02 - CONCLUSION: No acute disease. Chris Potter MD FACR Course EKGs are sinus rhythm without significant ST segment depressions or elevations. Assessment and Plan Assessment and Plan * Chest pain: Patient has had serial cardiac enzymes and EKGs for ruling out purposes. She will be seen by Dr. Donis of cardiology in the chest pain center. She will undergo a Shaan protocol ETT and be discharged if nonischemic. * Cocaine abuse: Patient has been counseled on importance of not using cocaine. It was explained to her that it will kill her. * Tobacco abuse: Patient has been counseled on importance of smoking cessation. Patient is stable at this time. She is agreeable to this plan. Noe Reinoso Jan 23, 2017 09:28
--- NOTE | 2017-01-23 10:48 | TR ---
Date Performed: 01/23/2017 Time Performed: 09:22:11 DOCTOR: Marques Donis DRUG LIST: CLINICAL HISTORY: REASON FOR TEST: REASON FOR ENDING: OBSERVATION: CONCLUSION: Shaan protocol attempted, test stopped secondary to leg fatigue and weakness. Maximu m EQ=010 % Target HR Achieved=73.0% Total Exercise Time=1:41 Maximum IF=872/76 COMMENTS: Conclusion: Normal treadmill exercise. No evidence of ischemia.
[2017-01-23] MEDS: SODIUM CHLORIDE 0.9% FLUSH 10 ML FLUSH IV FLUSH SCH (10:53)
[2017-01-23] MEDS ORDERED: RESP: ALBUTEROL 2.5 MG/IPRATROPIUM 0.5 MG NEB (PRN) INH (12:00)
[2017-01-23 12:12] VITALS: BP 100/62; PULSE 67; RESP 18; TEMP 98.3; O2SAT 100
[2017-01-23 12:35] VITALS: PULSE 56
--- NOTE | 2017-01-23 15:10 | EKG ---
Date Performed: 01/22/2017 Time Performed: 22:03:41 PTAGE: 51 years EKG: Sinus rhythm POSSIBLE RIGHT VENTRICULAR CONDUCTION DELAY BORDERLINE ECG PREVIOUS TRACING : 01/22/2017 18.26 Since previous tracing, no significant change noted DOCTOR: Marques Donis Interpretating Date/Time 01/23/2017 15:08:34
--- NOTE | 2017-01-23 15:14 | EKG ---
Date Performed: 01/22/2017 Time Performed: 18:26:50 PTAGE: 51 years EKG: Sinus rhythm NORMAL ECG PREVIOUS TRACING : 01/22/2017 14.26 Since previous tracing, no significant change noted DOCTOR: Marques Donis Interpretating Date/Time 01/23/2017 15:12:41
--- NOTE | 2017-01-23 15:15 | EKG ---
Date Performed: 01/22/2017 Time Performed: 14:26:22 PTAGE: 51 years EKG: Sinus rhythm POSSIBLE LEFT ATRIAL ENLARGEMENT BORDERLINE ECG PREVIOUS TRACING : 01/16/2017 14.07 Since previous tracing, no significant change noted DOCTOR: Marques Donis Interpretating Date/Time 01/23/2017 15:14:30
== END 2017-01-23 14:59 | disposition home or self-care (01) ==
LOC: NEPD 13:52 → UNDOADMOB 16:14 → NEDA 16:14 → NEPHCDU 21:24
PROVIDERS: ADMIT Internal Medicine Cardiovascular Disease; ATTEND Internal Medicine Cardiovascular Disease
DX: R07.89 Other chest pain (principal); F31.9 Bipolar disorder, unspecified; F14.10 Cocaine abuse, uncomplicated; J44.9 Chronic obstructive pulmonary disease, unspecified; K21.9 Gastro-esophageal reflux disease without esophagitis; F17.210 Nicotine dependence, cigarettes, uncomplicated; F41.9 Anxiety disorder, unspecified; M19.90 Unspecified osteoarthritis, unspecified site; Z59.0 Homelessness; Z79.899 Other long term (current) drug therapy
CPT/HCPCS: 71010; 80053; 80307; 82550; 83690; 83735; 84484; 84703; 85025; 85379; 85610; 85730; 93005; 93017; 96360; 99285; G0378; J7040

== ENCOUNTER 2017-01-29 01:25 | Emergency (ER) | payer MEDICARE, OTHER ==
[~2017-01-29] VITALS: Ht 157.5 cm; Wt 52.0 kg
[2017-01-29 01:27] VITALS: BP 130/78; PULSE 67; RESP 18; TEMP 98.1; O2SAT 100
[2017-01-29] MEDS ORDERED: BACL10TA PO (02:21)
[2017-01-29] MEDS ORDERED: LIDO1PAD52 TOPICAL (02:21)
--- NOTE | 2017-01-29 02:26 | PD ---
HPI Chief Complaint: Pain: Acute or Chronic Time Seen by Provider: :17 Travel History International Travel<30 days: No Contact w/Intl Traveler<30days: No Traveled to known affect area: No History of Present Illness HPI This is a 51-year-old homeless female who presents for evaluation of chronic lower back pain. Symptoms started 5 days ago after lifting something heavy at work. The pain is an aching pain in her lower back that radiates into both legs. The pain has been constant for several years but occasionally she has flareups of this pain which is what she has been experiencing tonight after having to walk a long distance. She is currently homeless and therefore has to walk a lot. She denies any trauma, abdominal pain, flank pain, dysuria, bowel or bladder incontinence, saddle anesthesia, IV drug use. She does have a history of cocaine abuse. She reports that typically when she comes to the emergency room for treatment of this pain she gets Dilaudid which seems to help. She is allergic to Toradol, methylprednisolone, morphine. She has no other complaints. PFSH Past Medical History Hx Anticoagulant Therapy: No Arthritis: Yes Asthma: Yes Bipolar Disorder: Yes Anxiety: Yes Depression: Yes Heart Rhythm Problems: Yes (Loop recorder in the past) Cancer: No Cardiac Catheterization: Yes Cardiovascular Problems: Yes High Cholesterol: No Chemotherapy: No Chest Pain: Yes Congestive Heart Failure: No COPD: Yes Cerebrovascular Accident: No Diabetes: No Diminished Hearing: No Endocrine: No Gastrointestinal Disorders: No GERD: Yes Glaucoma: No Genitourinary: No Headaches: Yes (Migraines) Hepatitis: No Hiatal Hernia: No Herniated Disk: Yes ("BULGING DISCS FROM OLD WORK INJURY IN 1988") Hypertension: No Immune Disorder: No Implanted Vascular Access Dvce: Yes Musculoskeletal: Yes Neurologic: Yes Psychiatric: Yes Reproductive: No Respiratory: Yes Integumentary: No Immunizations Current: Yes Migraines: Yes Pneumonia: Yes Radiation Therapy: No Seizures: No Sleep Apnea: No Thyroid Disease: No Ulcer: No Tetanus Vaccination: < 5 Years Influenza Vaccination: No ?: Not Menopausal: Yes : 1 : 1 Ovarian Cysts: Yes Dilation and Curettage (D&C): Yes (X 3) Past Surgical History Abdominal Surgery: No Body Medical Devices: "WIRES STILL IN FROM SPINAL CORD STIMULATOR" Cardiac Surgery: Yes (MICROCHIP MONITOR :REMOVED 07/15/16) Coronary Artery Bypass Graft: No Ear Surgery: No Endocrine Surgery: No Eye Surgery: No Genitourinary Surgery: No Gynecologic Surgery: Yes (OVARIAN CYST) Hysterectomy: No Neurologic Surgery: No Oral Surgery: Yes Thoracic Surgery: No Tonsillectomy: Yes Other Surgery: Yes (SINUS, back multiple and right knee) Family History Family Myocardial Infarction: Yes (Father) Social History Alcohol Use: Yes (RARE) Tobacco Use: Yes (1/2 PPD) Substance Use: Yes (CRACK (01/19/17), COCAINE, BENZO'S) Allergies-Medications (Allergen,Severity, Reaction): Coded Allergies: amoxicillin (Unverified Allergy, Severe, HIVES, 01/29/17) diphenhydramine (Unverified Allergy, Severe, Hives, 01/29/17) fACIAL SWELLING AND HIVES - NURSE VERIFIED WITH PATIENT, BUT WAS UNABLE TO UPDATE IN 5gig FROM AN ADR TO ALLERGY, ASKED PHARMACY TO ENTER FOR HER. ketorolac (Unverified Allergy, Severe, HIVES/FACIAL SWELLING, 01/29/17) promethazine (Unverified Allergy, Severe, HIVES/FACIAL SWELLING, 01/29/17) methylprednisolone (Unverified Adverse Reaction, Severe, Swelling, 01/29/17 ) HIVES morphine (Unverified Adverse Reaction, Severe, HEADACHE, 01/29/17) propoxyphene (Unverified Adverse Reaction, Severe, HIVES/FACIAL SWELLING, 01/29/17) Reported Meds & Prescriptions Reported Meds & Active Scripts Active Lidocaine Patch 12 HR (Lidocaine) 5 % Patch 1 Patch TOPICAL DAILY Remove patch after 12 hours Baclofen 10 Mg Tab 10 Mg PO Q8HR PRN 7 Days Review of Systems Except as stated in HPI: all other systems reviewed are Neg Physical Exam Narrative GENERAL: Well-developed well-nourished female who is resting comfortably in hospital bed. SKIN: Warm and dry. No rash no bruising or soft tissue swelling HEAD: Atraumatic. Normocephalic. EYES: Pupils equal and round. No scleral icterus. No injection or drainage. ENT: No nasal bleeding or discharge. Mucous membranes pink and moist. NECK: Trachea midline. No JVD. CARDIOVASCULAR: Regular rate and rhythm. No murmur appreciated. RESPIRATORY: No accessory muscle use. Clear to auscultation. Breath sounds equal bilaterally. GASTROINTESTINAL: Abdomen soft, non-tender, nondistended. Hepatic and splenic margins not palpable. MUSCULOSKELETAL: No obvious deformities. Normal muscle strength in lower extremities. No CVA tenderness. No tenderness to palpation along the cervical thoracic or lumbar midline spine. NEUROLOGICAL: Awake and alert. No obvious cranial nerve deficits. Motor grossly within normal limits. Normal speech. PSYCHIATRIC: Appropriate mood and affect; insight and judgment normal. Data Data Last Documented VS Vital Signs Date Time Temp Pulse Resp B/P (MAP) Pulse Ox O2 Delivery O2 Flow Rate FiO2 01/29/17 01:31 68 18 01/29/17 01:27 98.1 130/78 (95) 100 Orders Orders Orphenadrine Inj (Norflex Inj) (01/29/17 02:30) Acetaminophen (Tylenol) (01/29/17 02:30) MDM Medical Decision Making Medical Screen Exam Complete: Yes Emergency Medical Condition: Yes Medical Record Reviewed: Yes Differential Diagnosis Chronic lower back pain, herniated nucleus pulposus, compression fracture, epidural abscess, AAA, renal stone, pancreatitis Narrative Course This is a 51-year-old female with chronic lower back pain for several years which was worse tonight after having a walk. Physical examination is benign. Reassuringly the patient had CT of the cervical/thoracic/lumbar spine on December 26 which were completely normal. I don't feel that repeat imaging is warranted. There is no evidence of a alternative emergent process that could be causing her chronic lower back pain tonight. The plan is to treat the patient with non-narcotic pain medication. Unfortunately she is allergic to Toradol, methylprednisolone. She'll be given a dose of Norflex and Tylenol here and she'll be given prescriptions for baclofen and Lidoderm patches. Diagnosis Primary Impression: Chronic lower back pain Qualified Codes: M54.41 - Lumbago with sciatica, right side; M54.42 - Lumbago with sciatica, left side; G89.29 - Other chronic pain Additional Instructions: Medication as needed. Do not drive or drink alcohol when taking baclofen. Follow up with primary care physician. Return for any emergent medical conditions. Med/Other Pt SpecificInfo: Prescription(s) given Scripts Lidocaine Patch 12 HR (Lidocaine Patch 12 HR) 5 % Patch 1 PATCH TOPICAL DAILY for Pain Management, #1 BOX 0 Refills Remove patch after 12 hours Prov: Lisa Collado DO 01/29/17 Baclofen (Baclofen) 10 Mg Tab 10 MG PO Q8HR Y for MUSCLE SPASM for 7 Days, TAB 0 Refills Prov: Lisa Collado Christine JOINER 01/29/17 Disposition: 01 DISCHARGE HOME Condition: Stable Jose M Dupree Jan 29, 2017 02:26
[2017-01-29] MEDS ORDERED: ACETAMINOPHEN 325 MG TAB PO ONE (02:30)
[2017-01-29] MEDS ORDERED: ORPHENADRINE INJ 60 MG/2 ML AMP IM ONE (02:30)
== END 2017-01-29 02:55 | disposition home or self-care (01) ==
LOC: NEPD 01:25
DX: M54.41 Lumbago with sciatica, right side (principal); M54.42 Lumbago with sciatica, left side; G89.29 Other chronic pain
CPT/HCPCS: 96372; 99284; J2360

== ENCOUNTER 2017-02-22 08:24 | Emergency (ER) | payer MEDICARE, OTHER ==
[~2017-02-22] VITALS: Ht 157.5 cm; Wt 47.0 kg
[~2017-02-22 08:24] MED LIST changes: -ABIL30TA2 PO; +BACL10TA PO; -BUPR150CR PO; -DULO1CAP3 PO; +LIDO1PAD52 TOPICAL; -LURA1TAB2 PO; -NITR100C4 PO; -NITR1CAP36 PO; -OMEP20TA PO; -PANT20 PO; -TRAZ300T2 PO
[2017-02-22 08:30] VITALS: BP 133/81; PULSE 82; RESP 20; TEMP 98.1; O2SAT 99
[2017-02-22 09:54] LABS: AUTOMATED NEUTROPHIL # 5.4 TH/MM3 (1.8-7.7); BASOPHIL # 0.1 TH/MM3 (0-0.2); BASOPHIL % 0.6 % (0.0-2.0); EOSINOPHIL # 0.1 TH/MM3 (0-0.4); EOSINOPHIL % 0.7 % (0.0-4.0); HEMATOCRIT 42.7 % (35.0-46.0); HEMO FLAGS DIFF FINAL; LYMPH % 24.5 % (9.0-44.0); LYMPHOCYTE # 1.9 TH/MM3 (1.0-4.8); MEAN CELL VOLUME 93.8 FL (80.0-100.0); MEAN CORPUSCULAR HEMOGLOBIN 30.8 PG (27.0-34.0); MEAN CORPUSCULAR HGB CONC 32.9 % (32.0-36.0); NEUT % 68.2 % (16.0-70.0); PLATELET COUNT 250 TH/MM3 (150-450); RED BLOOD COUNT 4.55 MIL/MM3 (4.00-5.30); RED CELL DISTRIBUTION WIDTH 13.4 % (11.6-17.2); WHITE BLOOD COUNT 7.9 TH/MM3 (4.0-11.0)
[2017-02-22 10:13] LABS: ANION GAP 9 MEQ/L (5-15); AST (GOT) 11 U/L (15-37); BICARBONATE 22.9 MEQ/L (21.0-32.0); BLOOD UREA NITROGEN 12 MG/DL (7-18); CHLORIDE 106 MEQ/L (98-107); GLOMERULAR FILTRATION RATE 48 ML/MIN (>89); POTASSIUM 4.1 MEQ/L (3.5-5.1); SODIUM (NA) 138 MEQ/L (136-145)
[2017-02-22 10:14] LABS: ALT (GPT) 19 U/L (10-53)
[2017-02-22 10:16] LABS: ALKALINE PHOSPHATASE 48 U/L (45-117); TOTAL BILIRUBIN ADULT 0.7 MG/DL (0.2-1.0)
--- NOTE | 2017-02-22 10:54 | PD ---
HPI Chief Complaint: Syncope/Near-Syncope Time Seen by Provider: 09:44 Travel History International Travel<30 days: No Contact w/Intl Traveler<30days: No Traveled to known affect area: No History of Present Illness HPI This is a 51-year-old female with a history of crack cocaine use, homelessness, who presents here stating she passed out this morning. The patient states she' s been generally weak. She denies a headache or neck pain. She denies any abdominal pain. The patient is very tearful and says she is depressed and his thinking about killing herself. When asked why she is considering killing herself, patient reports that she is depressed because she is homeless and her family don't want her anymore. When asked if she has a plan, she is not able to elaborate. PFSH Past Medical History Hx Anticoagulant Therapy: No Arthritis: Yes Asthma: Yes Bipolar Disorder: Yes Anxiety: Yes Depression: Yes Heart Rhythm Problems: Yes (Loop recorder in the past) Cancer: No Cardiac Catheterization: Yes Cardiovascular Problems: Yes High Cholesterol: No Chemotherapy: No Chest Pain: Yes Congestive Heart Failure: No COPD: Yes Cerebrovascular Accident: No Diabetes: No Diminished Hearing: No Endocrine: No Gastrointestinal Disorders: No GERD: Yes Glaucoma: No Genitourinary: No Headaches: Yes (Migraines) Hepatitis: No Hiatal Hernia: No Herniated Disk: Yes ("BULGING DISCS FROM OLD WORK INJURY IN 1988") Hypertension: No Immune Disorder: No Implanted Vascular Access Dvce: Yes Musculoskeletal: Yes Neurologic: Yes Psychiatric: Yes Reproductive: No Respiratory: Yes Integumentary: No Immunizations Current: Yes Migraines: Yes Pneumonia: Yes Radiation Therapy: No Seizures: No Sleep Apnea: No Thyroid Disease: No Ulcer: No Tetanus Vaccination: > 5 Years Influenza Vaccination: No ?: Not LMP: 2014 Menopausal: Yes : 1 Para: 0 Miscarriage: 0 : 1 Ovarian Cysts: Yes Dilation and Curettage (D&C): Yes (X 3) Past Surgical History Abdominal Surgery: No Body Medical Devices: "WIRES STILL IN FROM SPINAL CORD STIMULATOR" Cardiac Surgery: Yes (MICROCHIP MONITOR :REMOVED 07/15/16) Coronary Artery Bypass Graft: No Ear Surgery: No Endocrine Surgery: No Eye Surgery: No Genitourinary Surgery: No Gynecologic Surgery: Yes (OVARIAN CYST) Hysterectomy: No Neurologic Surgery: No Oral Surgery: Yes Thoracic Surgery: No Tonsillectomy: Yes Other Surgery: Yes (SINUS, back multiple and right knee) Family History Family Myocardial Infarction: Yes (Father) Social History Alcohol Use: Yes (RARE) Tobacco Use: Yes (1/2 PPD) Substance Use: Yes (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 ketorolac (Unverified Allergy, Severe, HIVES/FACIAL SWELLING, 02/22/17) promethazine (Unverified Allergy, Severe, HIVES/FACIAL SWELLING, 02/22/17) methylprednisolone (Unverified Adverse Reaction, Severe, Swelling, 02/22/17 ) HIVES morphine (Unverified Adverse Reaction, Severe, HEADACHE, 02/22/17) propoxyphene (Unverified Adverse Reaction, Severe, HIVES/FACIAL SWELLING, 02/22/17) Reported Meds & Prescriptions Reported Meds & Active Scripts Active No Active Prescriptions or Reported Medications Review of Systems Except as stated in HPI: all other systems reviewed are Neg General / Constitutional: No: Fever, Chills HENT: No: Headaches, Neck Pain Cardiovascular: No: Chest Pain or Discomfort, Palpitations, Tachycardia Respiratory: No: Cough, Shortness of Breath Gastrointestinal: No: Nausea, Vomiting, Abdominal Pain Genitourinary: No: Frequency, Dysuria Musculoskeletal: Positive: Weakness (generalized), No: Pain Neurologic: Positive: Weakness, No: Headache, Change in Mentation, Sensory Disturbance Psychiatric: Positive: Depression, Substance Abuse Physical Exam Narrative GENERAL: Well-developed well-nourished female in no acute respiratory distress. SKIN: Focused skin assessment warm/dry. HEAD: Atraumatic. Normocephalic. EYES: No scleral icterus. No injection or drainage. ENT: No nasal bleeding or discharge. Mucous membranes pink and moist. NECK: Trachea midline. Supple with full range of motion. CARDIOVASCULAR: Regular rate and rhythm. No murmur appreciated. RESPIRATORY: No accessory muscle use. Clear to auscultation. Breath sounds equal bilaterally. GASTROINTESTINAL: Abdomen soft, non-tender, nondistended. MUSCULOSKELETAL: No obvious deformities. No clubbing. No cyanosis. No edema. NEUROLOGICAL: Awake and alert. No obvious cranial nerve deficits. Motor grossly within normal limits. Normal speech. PSYCHIATRIC: Tearful with remorse. Data Data Last Documented VS Vital Signs Date Time Temp Pulse Resp B/P (MAP) Pulse Ox O2 Delivery O2 Flow Rate FiO2 02/22/17 08:30 98.1 82 20 133/81 (98) 99 Orders Orders Electrocardiogram (02/22/17 09:04) Complete Blood Count With Diff (02/22/17 09:04) Comprehensive Metabolic Panel (02/22/17 09:04) Iv Access Insert/Monitor (02/22/17 09:04) Psych Screen (02/22/17 12:02) Sodium Chlor 0.9% 1000 Ml Inj (Ns 1000 M (02/22/17 12:15) Labs Laboratory Tests Test 02/22/17 09:44 White Blood Count 7.9 TH/MM3 Red Blood Count 4.55 MIL/MM3 Hemoglobin 14.0 GM/DL Hematocrit 42.7 % Mean Corpuscular Volume 93.8 FL Mean Corpuscular Hemoglobin 30.8 PG Mean Corpuscular Hemoglobin Concent 32.9 % Red Cell Distribution Width 13.4 % Platelet Count 250 TH/MM3 Mean Platelet Volume 7.1 FL Neutrophils (%) (Auto) 68.2 % Lymphocytes (%) (Auto) 24.5 % Monocytes (%) (Auto) 6.0 % Eosinophils (%) (Auto) 0.7 % Basophils (%) (Auto) 0.6 % Neutrophils # (Auto) 5.4 TH/MM3 Lymphocytes # (Auto) 1.9 TH/MM3 Monocytes # (Auto) 0.5 TH/MM3 Eosinophils # (Auto) 0.1 TH/MM3 Basophils # (Auto) 0.1 TH/MM3 CBC Comment DIFF FINAL Differential Comment Blood Urea Nitrogen 12 MG/DL Creatinine 1.18 MG/DL Random Glucose 86 MG/DL Total Protein 7.8 GM/DL Albumin 4.0 GM/DL Calcium Level 9.6 MG/DL Alkaline Phosphatase 48 U/L Aspartate Amino Transf (AST/SGOT) 11 U/L Alanine Aminotransferase (ALT/SGPT) 19 U/L Total Bilirubin 0.7 MG/DL Sodium Level 138 MEQ/L Potassium Level 4.1 MEQ/L Chloride Level 106 MEQ/L Carbon Dioxide Level 22.9 MEQ/L Anion Gap 9 MEQ/L Estimat Glomerular Filtration Rate 48 ML/MIN MDM Medical Decision Making Medical Screen Exam Complete: Yes Emergency Medical Condition: Yes Differential Diagnosis Poor social situation versus substance induced mood disorder versus depression Narrative Course 51-year-old female with a history of crack cocaine use, homelessness, presents here stating that she passed out this morning. Patient has no focal neuro deficits at the time my examination. Patient's laboratory tests other than mild dehydration is present. She's been given 1 L of IV fluid. Patient reports that she suicidal secondary to her poor social situation. She is not been placed under Shi act at this point. She is voluntary and wishes to be evaluated by psychiatric screener. She'll be medically cleared for the screening. Diagnosis Primary Impression: reported syncope Additional Impressions: Mild dehydration history of crack cocaine use Depression medically cleared Scripts No Active Prescriptions or Reported Meds Lucas Da Silva MD Feb 22, 2017 10:54
--- NOTE | 2017-02-22 11:09 | EKG ---
Date Performed: 02/22/2017 Time Performed: 09:50:03 PTAGE: 51 years EKG: Sinus rhythm LEFT ATRIAL ENLARGEMENT POSSIBLE RIGHT VENTRICULAR CONDUCTION DELAY ABNORMAL ECG No significant beavers ge from prior electrocardiogram. PREVIOUS TRACING : 01/22/2017 22.03 DOCTOR: Ren Matos Interpretating Date/Time 02/22/2017 11:08:28
[2017-02-22] MEDS ORDERED: SODIUM CHLOR 0.9% 1000 ML INJ 1,000 ML IV ONE (12:15)
[2017-02-22 14:59] VITALS: BP 108/68; PULSE 76; RESP 20; O2SAT 96
[2017-02-23 02:16] VITALS: BP 118/82; PULSE 74; RESP 18
== END 2017-02-23 11:33 | disposition home or self-care (01) ==
LOC: NEPC 08:24 → NEPJ 02-23 11:33
DX: R55 Syncope and collapse (principal); E86.0 Dehydration; F32.9 Major depressive disorder, single episode, unspecified; R94.31 Abnormal electrocardiogram [ECG] [EKG]; F14.90 Cocaine use, unspecified, uncomplicated; Z59.0 Homelessness
CPT/HCPCS: 80053; 85025; 93005; 99284; J7030